=== PATIENT | female | born 1935 | race Caucasian/White ===

== ENCOUNTER 2016-08-25 11:12 | Day surgery (SDC) | payer MEDICARE, BC ==
[~2016-08-25 11:12] MED LIST: Propofol 200 MG/20 ML SDV ONE; fentaNYL 100 MCG/2 ML SDV ONE
[2016-08-25] MEDS ORDERED: Lactated Ringers 1,000 ML IV SCH (12:15)
[2016-08-25] MEDS ORDERED: Propofol 200 MG/20 ML SDV ONE (13:33)
[2016-08-25 14:50] VITALS: BP 132/66
--- NOTE | 2016-08-26 07:28 | OR ---
DATE OF PROCEDURE: 08/25/2016 PREOPERATIVE DIAGNOSES: Anemia. POSTOPERATIVE DIAGNOSES: Hiatal hernia, duodenitis, diverticulosis, small colon polyp 50 cm from the anal verge, and anemia. PROCEDURES: Esophagogastroduodenoscopy with biopsy of duodenum and stomach for CLOtest and for Pathology to look for Helicobacter pylori. Colonoscopy to the cecum with biopsy resection of small colon polyp, 50 cm from the anal verge. ANESTHESIA: IV anesthesia with monitored anesthesia care. INDICATIONS: This 81-year-old white female is referred for upper and lower endoscopy because of anemia. A couple of weeks ago, she had to have a couple of units of blood. Reportedly, her hemoglobin is now over 10. I counseled for upper and lower endoscopy with possible biopsy and/or polypectomy including risks and alternatives and she gave her informed consent to proceed. DESCRIPTION OF PROCEDURE: The patient was placed in the left lateral decubitus position. IV anesthesia was administered by the Anesthesia Service. Time-out was held. The flexible video Olympus upper endoscope was passed through her mouth, down her esophagus, and into her stomach. The scope was easily passed through the pylorus into the duodenum and reached its third portion. The scope was then slowly withdrawn examining the mucosa throughout. The distal duodenum appeared unremarkable. The scope was brought into the duodenal bulb, where there was evidence of duodenitis. The scope was brought up through the pylorus into the antrum. The antrum appeared unremarkable. We then obtained biopsies of the duodenum and stomach for CLOtest and for Pathology to look for Helicobacter pylori. The scope was retroflexed in the stomach. The proximal stomach appeared unremarkable except for a fairly large hiatal hernia. The scope was straightened and brought up to the GE junction. This appeared unremarkable. The scope was brought up through the unremarkable appearing esophagus and was removed. Next a rectal exam was performed, which was unremarkable. The flexible video Olympus colonoscope was introduced through her anus, up her rectum, and out her colon all the way to the cecum. After the cecum was reached, the scope was slowly withdrawn examining the mucosa throughout. We encountered a small polyp 15 cm from the anal verge which was removed with the biopsy forceps. We also encountered multiple left- sided diverticula. There was no bleeding or inflammation associated with any of them at the present time. The scope was retroflexed in the rectum with the distal rectum appearing unremarkable. The scope was straightened and removed. She tolerated the procedure well. Carlos A Burch MD /[id number] MTDFarhad
== END 2016-08-25 15:00 | disposition home or self-care (01) ==
LOC: JP.SDS 11:12
PROVIDERS: ATTEND Surgery
PROC: 0DBE8ZX Excision of Large Intestine, Via Natural or Artificial Opening Endoscopic, Diagnostic (ICD-10-PCS; principal; 2016-08-25)
PROC: 0DB98ZX Excision of Duodenum, Via Natural or Artificial Opening Endoscopic, Diagnostic (ICD-10-PCS; 2016-08-25)
PROC: 0DB68ZX Excision of Stomach, Via Natural or Artificial Opening Endoscopic, Diagnostic (ICD-10-PCS; 2016-08-25)
DX: D50.9 Iron deficiency anemia, unspecified (principal); K57.90 Diverticulosis of intestine, part unspecified, without perforation or abscess without bleeding; D12.6 Benign neoplasm of colon, unspecified; K29.80 Duodenitis without bleeding; K44.9 Diaphragmatic hernia without obstruction or gangrene; Z88.1 Allergy status to other antibiotic agents
CPT/HCPCS: 43239; 45380; 87081; J2704; J3010; J7120; 88305

== ENCOUNTER 2017-11-01 08:27 | Emergency (ER) | payer MEDICARE, BC ==
[2017-11-01] MEDS ORDERED: Ondansetron 4 MG Tab.DIS PO ONE (09:06)
[2017-11-01] MEDS ORDERED: fentaNYL 100 MCG/2 ML SDV IM ONE (09:06)
--- NOTE | 2017-11-01 09:09 | EDM.PDOC ---
ED HPI GENERAL MEDICAL PROBLEM - General Chief Complaint: Gastrointestinal Problem Stated Complaint: ABD PAIN/WEAK Time Seen by Provider: 11/01/17 08:57 Source of Information: Reports: Patient, Family History Limitations: Reports: No Limitations - History of Present Illness INITIAL COMMENTS - FREE TEXT/NARRATIVE: 82-year-old female presents to the emergency department with complaint of abdominal pain, she states she's had pain for about 24 hours it is progressively getting worse rates it 10 out of 10 does come in waves does have a history of cholecystectomy and history of bowel obstruction 1. She denies any fevers or shortness of breath she states she has not passed any gas had a normal bowel movement yesterday Abdominal Pain Score (Numeric/FACES): 6 - Related Data Allergies Allergy/AdvReac Type Severity Reaction Status Date / Time erythromycin lactobionate Allergy Severe Hives Verified 11/01/17 08:42 [From Erythrocin] Home Meds: Home Meds Alendronate [Fosamax] 70 mg PO Q7D@0600 08/01/15 [History] Cholecalciferol (Vitamin D3) [Vitamin D] 400 unit PO DAILY 08/01/15 [History] Cyanocobalamin (Vitamin B12) [Vitamin B12] 100 mcg PO DAILY 08/01/15 [History] Gluc Ceballos 2KCl/Chondr/Vit C/Ulises [Glucosamine-Chondr Complex] 1 each PO DAILY 05/17 [History] Cinnamon Bark [Cinnamon] 1,000 mg PO DAILY 08/11/16 [History] Niacin 500 mg PO QAM 08/11/16 [History] Ferrous Sulfate [Iron] 325 mg PO BID 08/25/16 [History] Past Medical History HEENT History: Reports: Hard of Hearing, Impaired Vision Respiratory History: Reports: Croup Other Respiratory History: legionaries disease 1992 Gastrointestinal History: Reports: Cholelithiasis, Other (See Below) 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: Musculoskeletal History: Reports: Osteoarthritis, RA Endocrine/Metabolic History: Reports: Osteoporosis Oncologic (Cancer) History: Reports: Malignant Melanoma - Infectious Disease History Infectious Disease History: Reports: Chicken Pox, Measles, Mumps Other Infectious Disease History: HAD SOME TYPE OF HEPITITIS YEARS AGO - Past Surgical History HEENT Surgical History: Reports: Cataract Surgery, Tonsillectomy GI Surgical History: Reports: Cholecystectomy, Colon Musculoskeletal Surgical History: Reports: Knee Replacement Oncologic Surgical History: Reports: Other (See Below) Social & Family History - Tobacco Use Smoking Status *Q: Former Smoker Years of Tobacco use: 25 Packs/Tins Daily: 1 Used Tobacco, but Quit: Yes Month/Year Tobacco Last Used: 08/1989 Second Hand Smoke Exposure: Yes - Caffeine Use Caffeine Use: Reports: Coffee, Soda, Tea - Recreational Drug Use Recreational Drug Use: No ED ROS GENERAL - Review of Systems Review Of Systems: See Below Constitutional: Reports: No Symptoms HEENT: Reports: No Symptoms Respiratory: Reports: No Symptoms Cardiovascular: Reports: No Symptoms GI/Abdominal: Reports: Abdominal Pain. Denies: Constipation, Diarrhea, Flatus, Nausea, Vomiting : Reports: No Symptoms Musculoskeletal: Reports: No Symptoms Skin: Reports: No Symptoms Neurological: Reports: No Symptoms ED EXAM, GI/ABD - Physical Exam Exam: See Below Text/Narrative:: General: Female, not in any distress, alert and oriented x3 HEENT: head is atraumatic normocephalic, eyes pupils equal round reactive to light, sclera clear no conjunctivitis appreciated. Ears tympanic membranes clear and sotomayor landmarks and light reflex are present bilaterally canals are clear. Nose no septal deviation, nares are clear, no blood present. Mouth mucosa is moist and pink no erythema or exudate noted in soft palate, tongue is midline uvula is midline, dentition is intact. Neck: Supple no thyromegaly no tracheal deviation. Nodes: Cervical nodes subclavicular nodes nontender no palpable lymphadenopathy noted. Lungs: clear to auscultation bilaterally with symmetrical respirations, no adventitious noise appreciated. CV: Regular rate and rhythm S1 and S2 appreciated no murmurs rubs or gallops noted. Abdomen: Soft, nontender, no palpable masses or organomegaly appreciated, no distention no guarding bowel sounds are present, . Neuro: Cranial nerves II through XII grossly intact Skin: Warm and dry, intact Extremities: No lower extremity edema appreciated, Course - Vital Signs Last Recorded V/S: Last Vital Signs Temp 97.9 F 11/01/17 10:28 Pulse 75 11/01/17 10:28 Resp 16 11/01/17 10:28 BP 131/69 11/01/17 10:28 Pulse Ox 97 11/01/17 10:28 - Orders/Labs/Meds Orders: Active Orders 24 hr Category Date Time Status CULTURE URINE [RM] Urgent Lab 11/01/17 11:40 Ordered UA W/MICROSCOPIC [URIN] Urgent Lab 11/01/17 11:00 Ordered Labs: Laboratory Tests 11/01/17 11/01/17 11/01/17 Range/Units 09:15 09:15 09:15 WBC 10.7 (4.5-11.0) K/uL RBC 5.22 (3.30-5.50) M/uL Hgb 15.1 H (12.0-15.0) g/dL Hct 43.4 (36.0-48.0) % MCV 83 (80-98) fL MCH 29 (27-31) pg MCHC 35 (32-36) % Plt Count 277 (150-400) K/uL Neut % (Auto) 73 H (36-66) % Lymph % (Auto) 17 L (24-44) % [place] % (Auto) 9 H (2-6) % Eos % (Auto) 1 L (2-4) % Baso % (Auto) 0 (0-1) % Sodium 141 (140-148) mmol/L Potassium 4.2 (3.6-5.2) mmol/L Chloride 106 (100-108) mmol/L Carbon Dioxide 22 (21-32) mmol/L Anion Gap 13.1 (5.0-14.0) mmol/L BUN 18 (7-18) mg/dL Creatinine 0.9 (0.6-1.0) mg/dL Est Cr Clr Drug Dosing 38.12 mL/min Estimated GFR (MDRD) 60 (>60) Glucose 144 H (74-106) mg/dL Lactic Acid 1.8 (0.4-2.0) mmol/L Calcium 9.5 (8.5-10.1) mg/dL Total Bilirubin 0.9 (0.2-1.0) mg/dL AST 18 (15-37) U/L ALT 23 (12-78) U/L Alkaline Phosphatase 81 (46-116) U/L Troponin I < 0.017 (0.000-0.056) ng/mL Total Protein 6.4 (6.4-8.2) g/dL Albumin 3.4 (3.4-5.0) g/dL Globulin 3.0 (2.3-3.5) g/dL Albumin/Globulin Ratio 1.1 L (1.2-2.2) Lipase 115 (73-393) U/L Urine Color Urine Appearance Urine pH (4.5-8.0) Ur Specific [place] (1.008-1.030) Urine Protein (NEGATIVE) mg/dL Urine Glucose (UA) (NEGATIVE) mg/dL Urine Ketones (NEGATIVE) mg/dL Urine Occult Blood (NEGATIVE) Urine Nitrite (NEGATIVE) Urine Bilirubin (NEGATIVE) Urine Urobilinogen (NORMAL) mg/dL Ur Leukocyte Esterase (NEGATIVE) Urine RBC (0-5) Urine WBC (0-5) Ur Epithelial Cells Amorphous Sediment Urine Bacteria Urine Mucus 11/01/17 Range/Units 11:00 WBC (4.5-11.0) K/uL RBC (3.30-5.50) M/uL Hgb (12.0-15.0) g/dL Hct (36.0-48.0) % MCV (80-98) fL MCH (27-31) pg MCHC (32-36) % Plt Count (150-400) K/uL Neut % (Auto) (36-66) % Lymph % (Auto) (24-44) % [place] % (Auto) (2-6) % Eos % (Auto) (2-4) % Baso % (Auto) (0-1) % Sodium (140-148) mmol/L Potassium (3.6-5.2) mmol/L Chloride (100-108) mmol/L Carbon Dioxide (21-32) mmol/L Anion Gap (5.0-14.0) mmol/L BUN (7-18) mg/dL Creatinine (0.6-1.0) mg/dL Est Cr Clr Drug Dosing mL/min Estimated GFR (MDRD) (>60) Glucose (74-106) mg/dL Lactic Acid (0.4-2.0) mmol/L Calcium (8.5-10.1) mg/dL Total Bilirubin (0.2-1.0) mg/dL AST (15-37) U/L ALT (12-78) U/L Alkaline Phosphatase (46-116) U/L Troponin I (0.000-0.056) ng/mL Total Protein (6.4-8.2) g/dL Albumin (3.4-5.0) g/dL Globulin (2.3-3.5) g/dL Albumin/Globulin Ratio (1.2-2.2) Lipase (73-393) U/L Urine Color Yellow Urine Appearance Clear Urine pH 5.0 (4.5-8.0) Ur Specific [place] 1.025 (1.008-1.030) Urine Protein Negative (NEGATIVE) mg/dL Urine Glucose (UA) Normal (NEGATIVE) mg/dL Urine Ketones 15 H (NEGATIVE) mg/dL Urine Occult Blood Negative (NEGATIVE) Urine Nitrite Negative (NEGATIVE) Urine Bilirubin Small (NEGATIVE) Urine Urobilinogen 1 (NORMAL) mg/dL Ur Leukocyte Esterase Large (NEGATIVE) Urine RBC Not seen (0-5) Urine WBC 5-10 H (0-5) Ur Epithelial Cells Few Amorphous Sediment Not seen Urine Bacteria Few Urine Mucus Few Meds: Medications Discontinued Medications Generic Name Dose Route Start Last Admin Trade Name Freq PRN Reason Stop Dose Admin Fentanyl 50 mcg 11/01/17 09:06 11/01/17 09:15 Sublimaze IM 11/01/17 09:07 50 mcg ONETIME ONE Administration Ondansetron HCl 4 mg 11/01/17 09:06 11/01/17 09:15 Zofran Odt PO 11/01/17 09:07 4 mg ONETIME ONE Administration Departure - Departure Time of Disposition: 11:46 Disposition: Home, Self-Care 01 Condition: Fair Clinical Impression: Abdominal pain Qualifiers: Abdominal location: generalized Qualified Code(s): R10.84 - Generalized abdominal pain - Discharge Information Referrals: Rigoberto Giron MD [Primary Care Provider] - Forms: ED Department Discharge Additional Instructions: Continue with symptomatic care, Please followup with your primary care provider in 3-5 days if not better, please call return to the emergency department with worsening of symptoms. - My Orders Last 24 Hours: My Active Orders 11/01/17 11:00 UA W/MICROSCOPIC [URIN] Urgent 11/01/17 11:40 CULTURE URINE [RM] Urgent - Assessment/Plan Last 24 Hours: My Active Orders 11/01/17 11:00 UA W/MICROSCOPIC [URIN] Urgent 11/01/17 11:40 CULTURE URINE [RM] Urgent Plan: Assessment Acuity = acute Site and laterality = abdominal pain Etiology = unclear etiology Manifestations = none Location of injury = Home Lab values = CBC, CMP , troponin negative urinalysis reveals 5-10 WBCs consistent pyuria few bacteria cultures pending , x-ray of the abdomen reveals nonspecific bowel gas pattern no sign of obstruction Plan She had complete relief of her abdominal pain with fentanyl , I did discuss with her options including CT scan for further evaluation she preferred to do watchful waiting at this time. She will follow-up with primary care 3-4 days if not better This note was dictated using [email or web address] voice recognition software please call with any questions on syntax or grammar.
[2017-11-01 10:29] VITALS: BP 131/69
--- NOTE | 2017-11-01 10:49 | CR ---
Abdomen 1V Flat INDICATION: pain COMPARISON: Nothing recent. CT 04/01/2014. FINDINGS: Single supine view of the abdomen shows nonspecific bowel gas pattern. No definite signs of obstruction. Surgical clips right upper quadrant. There may be postsurgical change in the left abdomen. No abnormal calculi. Degenerative change in right convex curvature lumbar spine.
== END 2017-11-01 12:34 | disposition home or self-care (01) ==
LOC: JP.ED 08:27
DX: R10.84 Generalized abdominal pain (principal); Z87.891 Personal history of nicotine dependence; Z79.899 Other long term (current) drug therapy; Z88.1 Allergy status to other antibiotic agents
CPT/HCPCS: 36415; 74018; 80053; 81001; 83605; 83690; 84484; 85025; 87086; 87088; 87186; 96372; 99284; A9270; J3010

== ENCOUNTER 2017-11-02 03:28 | Inpatient (IN) | payer MEDICARE, BC ==
[2017-11-02] MEDS ORDERED: Ondansetron 4 MG/2 ML SDV IVPUSH ONE (03:59)
[2017-11-02] MEDS ORDERED: fentaNYL 100 MCG/2 ML SDV IVPUSH ONE (03:59)
[2017-11-02] MEDS ORDERED: Sodium Chloride 0.9% 10 ML Syringe FLUSH PRN (03:59)
[2017-11-02] MEDS ORDERED: Sodium Chloride 0.9% 1,000 ML IV SCH (04:00)
--- NOTE | 2017-11-02 04:06 | EDM.PDOC ---
ED HPI GENERAL MEDICAL PROBLEM - General Chief Complaint: Abdominal Pain Stated Complaint: MED[facility] Time Seen by Provider: 11/02/17 03:48 Source of Information: Reports: Patient, Old Records, RN Notes Reviewed History Limitations: Reports: No Limitations - History of Present Illness INITIAL COMMENTS - FREE TEXT/NARRATIVE: EMS arrival Chief complaint Abdominal pain History of present illness 82-year-old female, , lives on her own, started developing upper abdominal pain approximately 40 hours ago He reminds her bit of gallbladder pain, she did have a cholecystectomy. She was seen in emergency about 20 hours ago for this, improved with fentanyl and ondansetron IV, she declined CT scan at that time Discharged home improved but her symptoms started relapsing within a few hours. Nausea but no vomiting no retching No urinary troubles feels like a pressure across the upper abdomen. No comfortable position, nothing relieves the pain No fever or chills Abdominal Pain Score (Numeric/FACES): 8 - Related Data Allergies Allergy/AdvReac Type Severity Reaction Status Date / Time erythromycin lactobionate Allergy Severe Hives Verified 11/02/17 03:32 [From Erythrocin] Home Meds: Home Meds Alendronate [Fosamax] 70 mg PO Q7D@0600 08/01/15 [History] Cholecalciferol (Vitamin D3) [Vitamin D] 400 unit PO DAILY 08/01/15 [History] Cyanocobalamin (Vitamin B12) [Vitamin B12] 100 mcg PO DAILY 08/01/15 [History] Gluc Ceballos 2KCl/Chondr/Vit C/Ulises [Glucosamine-Chondr Complex] 1 each PO DAILY 05/17 [History] Cinnamon Bark [Cinnamon] 1,000 mg PO DAILY 08/11/16 [History] Niacin 500 mg PO QAM 08/11/16 [History] Ferrous Sulfate [Iron] 325 mg PO BID 08/25/16 [History] Past Medical History HEENT History: Reports: Hard of Hearing, Impaired Vision Respiratory History: Reports: Croup Other Respiratory History: legionaries disease 1992 Gastrointestinal History: Reports: Cholelithiasis, Other (See Below) 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: Musculoskeletal History: Reports: Osteoarthritis, RA Endocrine/Metabolic History: Reports: Osteoporosis Oncologic (Cancer) History: Reports: Malignant Melanoma - Infectious Disease History Infectious Disease History: Reports: Chicken Pox, Measles, Mumps Other Infectious Disease History: HAD SOME TYPE OF HEPITITIS YEARS AGO - Past Surgical History HEENT Surgical History: Reports: Cataract Surgery, Tonsillectomy GI Surgical History: Reports: Cholecystectomy, Colon Musculoskeletal Surgical History: Reports: Knee Replacement Social & Family History - Tobacco Use Smoking Status *Q: Never Smoker - Caffeine Use Caffeine Use: Reports: None - Recreational Drug Use Recreational Drug Use: No ED ROS GENERAL - Review of Systems Review Of Systems: See Below Constitutional: Reports: No Symptoms HEENT: Reports: No Symptoms Respiratory: Reports: No Symptoms Cardiovascular: Reports: No Symptoms GI/Abdominal: Reports: Abdominal Pain, Decreased Appetite, Nausea. Denies: Constipation, Diarrhea, Vomiting : Reports: No Symptoms Musculoskeletal: Reports: No Symptoms Skin: Reports: No Symptoms Neurological: Reports: No Symptoms Immunologic: Reports: No Symptoms (Microscopic but) ED EXAM, GI/ABD - Physical Exam Exam: See Below Exam Limited By: No Limitations General Appearance: Alert, Anxious, Mild Distress, Other (Mild elevation systolic blood pressure otherwise vital signs normal, no difficulty speaking or breathing) Eyes: Bilateral: Normal Appearance Ears: Normal External Exam Nose: Normal Inspection Throat/Mouth: Normal Inspection, Normal Oropharynx Head: Atraumatic, Normocephalic Neck: Normal Inspection, Non-Tender. No: Lymphadenopathy (R), Lymphadenopathy ( L) Respiratory/Chest: No Respiratory Distress, No Accessory Muscle Use Cardiovascular: Normal Peripheral Pulses, Regular Rate, Rhythm GI/Abdominal Exam: Soft, Distended, Tender (Mild across upper abdomen), Abnormal Bowel Sounds (Slightly increased in quantity and a very slight increase in pitch). No: Rigid, Rebound, Hernia, Mass, Hepatomegaly Neurological: Alert, No Motor/Sensory Deficits Course - Vital Signs Last Recorded V/S: Last Vital Signs Temp 36.9 C 11/02/17 03:39 Pulse 75 11/02/17 03:39 Resp 20 11/02/17 03:39 BP 142/76 H 11/02/17 03:39 Pulse Ox 94 L 11/02/17 03:39 - Orders/Labs/Meds Orders: Active Orders 24 hr Category Date Time Status Peripheral IV Care [RC] . DIRECTED Care 11/02/17 04:00 Active Abdomen Pelvis w Cont [CT] Stat Exams 11/02/17 03:59 Taken Sodium Chloride 0.9% [Normal Saline] 1,000 ml Med 11/02/17 04:00 Active IV ASDIRECTED Sodium Chloride 0.9% [Saline Flush] Med 11/02/17 03:59 Active 10 ml FLUSH ASDIRECTED PRN Peripheral IV Insertion Adult [OM.PC] Routine Oth 11/02/17 03:59 Ordered Medication Orders Sodium Chloride (Normal Saline) 1,000 mls @ 250 mls/hr IV ASDIRECTED MIMI Last Admin: 11/02/17 04:11 Dose: 250 mls/hr Sodium Chloride (Saline Flush) 10 ml FLUSH ASDIRECTED PRN PRN Reason: Keep Vein Open Last Admin: 11/02/17 04:12 Dose: 10 ml Labs: Laboratory Tests 11/02/17 Range/Units 03:59 WBC 11.2 H (4.5-11.0) K/uL RBC 5.52 H (3.30-5.50) M/uL Hgb 15.5 H (12.0-15.0) g/dL Hct 45.7 (36.0-48.0) % MCV 83 (80-98) fL MCH 28 (27-31) pg MCHC 34 (32-36) % Plt Count 322 (150-400) K/uL Meds: Medications Generic Name Dose Route Start Last Admin Trade Name Freq PRN Reason Stop Dose Admin Sodium Chloride 1,000 mls @ 250 mls/hr 11/02/17 04:00 11/02/17 04:11 Normal Saline IV 250 mls/hr ASDIRECTED MIMI Administration Sodium Chloride 10 ml 11/02/17 03:59 11/02/17 04:12 Saline Flush FLUSH 10 ml ASDIRECTED PRN Administration Keep Vein Open Discontinued Medications Generic Name Dose Route Start Last Admin Trade Name Freq PRN Reason Stop Dose Admin Fentanyl 50 mcg 11/02/17 03:59 11/02/17 04:11 Sublimaze IVPUSH 11/02/17 04:00 50 mcg ONETIME ONE Administration Sodium Chloride 70 mls @ 3 mls/sec 11/02/17 04:20 11/02/17 04:36 Normal Saline IV 11/02/17 04:21 3 mls/sec ASDIRECTED STA Administration Iopamidol 100 ml 11/02/17 04:20 11/02/17 04:36 Isovue-300 (61%) IV 11/02/17 04:21 100 ml . DIRECTED STA Administration Ondansetron HCl 4 mg 11/02/17 03:59 11/02/17 04:12 Zofran IVPUSH 11/02/17 04:00 4 mg ONETIME ONE Administration - Re-Assessments/Exams Free Text/Narrative Re-Assessment/Exam: 11/02/17 04:05 82-year-old female with approximately 40 hours of upper abdominal pain. Differential diagnosis includes colitis gastroneur choledocholithiasis gastroneuritis among others Intrave established, fentanyl 50 g IV, ondansetron 4 mg IV 11/02/17 04:09 Because of the recurrent and persistent pain, CT scan abdomen pelvis 11/02/17 05:[address] scan shows small bowel obstruction Patient has refused nasogastric tube Departure - Departure Time of Disposition: 05:12 Disposition: Admitted As Inpatient 66 Condition: Good Clinical Impression: Small bowel obstruction - Discharge Information Referrals: PCP,None [Primary Care Provider] - Forms: ED Department Discharge - My Orders Last 24 Hours: My Active Orders 11/02/17 03:59 Abdomen Pelvis w Cont [CT] Stat Sodium Chloride 0.9% [Saline Flush] 10 ml FLUSH ASDIRECTED PRN Peripheral IV Insertion Adult [OM.PC] Routine 11/02/17 04:00 Peripheral IV Care [RC] . DIRECTED Sodium Chloride 0.9% [Normal Saline] 1,000 ml IV ASDIRECTED - Assessment/Plan Last 24 Hours: My Active Orders 11/02/17 03:59 Abdomen Pelvis w Cont [CT] Stat Sodium Chloride 0.9% [Saline Flush] 10 ml FLUSH ASDIRECTED PRN Peripheral IV Insertion Adult [OM.PC] Routine 11/02/17 04:00 Peripheral IV Care [RC] . DIRECTED Sodium Chloride 0.9% [Normal Saline] 1,000 ml IV ASDIRECTED
[2017-11-02] MEDS ORDERED: Iopamidol 612 MG/ML 100 ML Bottle IV STA (04:20)
--- NOTE | 2017-11-02 06:06 | PCM.HP ---
H&P History of Present Illness - General Date of Service: 11/02/17 Admit Problem/Dx: Admission Diagnosis/Problem Admission Diagnosis/Problem Small bowel obstruction Source of Information: Patient History Limitations: Reports: No Limitations - History of Present Illness Initial Comments - Free Text/Narative: EMS arrival Chief complaint Abdominal pain History of present illness 82-year-old female, , lives on her own, started developing upper abdominal pain approximately 40 hours ago He reminds her bit of gallbladder pain, she did have a cholecystectomy. She was seen in emergency about 20 hours ago for this, improved with fentanyl and ondansetron IV, she declined CT scan at that time Discharged home improved but her symptoms started relapsing within a few hours. Nausea but no vomiting no retching No urinary troubles feels like a pressure across the upper abdomen. No comfortable position, nothing relieves the pain No fever or chills Abdominal Pain Score (Numeric/FACES): 8 11/02/17 04:05 82-year-old female with approximately 40 hours of upper abdominal pain. Differential diagnosis includes colitis gastroneur choledocholithiasis gastroneuritis among others Intrave established, fentanyl 50 g IV, ondansetron 4 mg IV 11/02/17 04:09 Because of the recurrent and persistent pain, CT scan abdomen pelvis 11/02/17 05:[address] scan shows small bowel obstruction Patient has refused nasogastric tube Onset of Symptoms: Reports: Today Symptom Onset Date: 10/30/17 Duration of Symptoms: Reports: Getting Worse Location: Reports: Abdomen Quality: Reports: Same as Previous Episode Severity: Moderate Improves with: Reports: None Worsens with: Reports: Eating Context: Reports: Other Associated Symptoms: Reports: Loss of Appetite, Nausea/Vomiting, Weakness Abdominal Pain Score (Numeric/FACES): 8 - Related Data Allergies/Adverse Reactions: Allergies Allergy/AdvReac Type Severity Reaction Status Date / Time erythromycin lactobionate Allergy Severe Hives Verified 11/02/17 03:32 [From Erythrocin] Home Medications: Home Meds Alendronate [Fosamax] 70 mg PO Q7D@0600 08/01/15 [History] Cholecalciferol (Vitamin D3) [Vitamin D] 400 unit PO DAILY 08/01/15 [History] Cyanocobalamin (Vitamin B12) [Vitamin B12] 100 mcg PO DAILY 08/01/15 [History] Gluc Ceballos 2KCl/Chondr/Vit C/Ulises [Glucosamine-Chondr Complex] 1 each PO DAILY 05/17 [History] Cinnamon Bark [Cinnamon] 1,000 mg PO DAILY 08/11/16 [History] Niacin 500 mg PO QAM 08/11/16 [History] Ferrous Sulfate [Iron] 325 mg PO BID 08/25/16 [History] Past Medical History HEENT History: Reports: Hard of Hearing, Impaired Vision Respiratory History: Reports: Croup Other Respiratory History: legionaries disease 1992 Gastrointestinal History: Reports: Cholelithiasis, Other (See Below) 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 Gastrointestinal History: 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: Musculoskeletal History: Reports: Osteoarthritis, RA Endocrine/Metabolic History: Reports: Osteoporosis Oncologic (Cancer) History: Reports: Malignant Melanoma - Infectious Disease History Infectious Disease History: Reports: Chicken Pox, Measles, Mumps Other Infectious Disease History: HAD SOME TYPE OF HEPITITIS YEARS AGO - Past Surgical History HEENT Surgical History: Reports: Cataract Surgery, Tonsillectomy GI Surgical History: Reports: Cholecystectomy, Colon Musculoskeletal Surgical History: Reports: Knee Replacement Social & Family History - Tobacco Use Smoking Status *Q: Never Smoker - Caffeine Use Caffeine Use: Reports: None - Recreational Drug Use Recreational Drug Use: No - Living Situation & Occupation Living situation: Reports: Occupation: Retired ( for 4 years, lives [address] in [place], [place]., selling in home, plans to live in [address] in [place], [place]. has 3 adult children/daughter) H&P Review of Systems - Review of Systems: Review Of Systems: See Below General: Reports: Weakness, Decreased Appetite HEENT: Reports: Glasses Pulmonary: Reports: No Symptoms Cardiovascular: Reports: No Symptoms Gastrointestinal: Reports: Abdominal Pain, Distension, Nausea Genitourinary: Reports: No Symptoms Musculoskeletal: Reports: No Symptoms Skin: Reports: No Symptoms Psychiatric: Reports: No Symptoms Neurological: Reports: Weakness Hematologic/Lymphatic: Reports: No Symptoms Immunologic: Reports: No Symptoms Exam - Exam Exam: See Below - Vital Signs Vital Signs: Last Vital Signs Temp 36.9 C 11/02/17 03:39 Pulse 75 11/02/17 03:39 Resp 20 11/02/17 03:39 BP 142/76 H 11/02/17 03:39 Pulse Ox 94 L 11/02/17 03:39 Weight: 62.596 kg - Exam Quality Assessment: DVT Prophylaxis General: Alert, Oriented, Cooperative, Mild Distress HEENT: PERRLA, Conjunctiva Clear, EACs Clear, EOMI, Hearing Intact, Mucosa Moist & [place], Nares Patent, Normal Nasal Septum, Posterior Pharynx Clear, Pupils Equal, Pupils Reactive, TMs Clear Neck: Supple, Trachea Midline Lungs: Clear to Auscultation, Normal Respiratory Effort Cardiovascular: Regular Rate, Regular Rhythm, Normal S1, Normal S2 GI/Abdominal Exam: Distended, Tender, Abnormal Bowel Sounds (Female) Exam: Deferred Rectal (Female) Exam: Deferred Back Exam: Normal Inspection, Full Range of Motion Extremities: Normal Inspection, Normal Range of Motion, Non-Tender, No Pedal Edema, Normal Capillary Refill Skin: Warm, Dry, Intact Neurological: Strength Equal Bilateral, Normal Speech, Normal Tone Neuro Extensive - Mental Status: Alert, Oriented x3, Normal Mood/Affect, Normal Cognition Neuro Extensive - Motor, Sensory, Reflexes: Motor/Sensory Deficits Psychiatric: Alert, Normal Affect, Normal Mood - Patient Data Lab Results Last 24 hrs: Laboratory Results - last 24 hr 11/02/17 11/02/17 Range/Units 03:59 05:44 WBC 11.2 H (4.5-11.0) K/uL RBC 5.52 H (3.30-5.50) M/uL Hgb 15.5 H (12.0-15.0) g/dL Hct 45.7 (36.0-48.0) % MCV 83 (80-98) fL MCH 28 (27-31) pg MCHC 34 (32-36) % Plt Count 322 (150-400) K/uL Sodium 140 (140-148) mmol/L Potassium 4.1 (3.6-5.2) mmol/L Chloride 103 (100-108) mmol/L Carbon Dioxide 25 (21-32) mmol/L Anion Gap 12.3 (5.0-14.0) mmol/L BUN 23 H (7-18) mg/dL Creatinine 1.0 (0.6-1.0) mg/dL Est Cr Clr Drug Dosing 34.30 mL/min Estimated GFR (MDRD) 53 L (>60) Glucose 148 H (74-106) mg/dL Calcium 9.6 (8.5-10.1) mg/dL Result Diagrams: 11/02/17 03:59 11/02/17 05:44 - Problem List (1) Small bowel obstruction SNOMED Code(s): 626919799 ICD Code: K56.609 - UNSP INTESTNL OBST, UNSP TO PARTIAL VERSUS COMPLETE OBST Status: Acute Current Visit: Yes Problem List Initiated/Reviewed/Updated: Yes Orders Last 24hrs: Active Orders 24 hr Category Date Time Status Patient Status Manage Transfer [TRANSFER] Routine ADT 11/02/17 05:51 Ordered Peripheral IV Care [RC] . DIRECTED Care 11/02/17 04:00 Active Abdomen Pelvis w Cont [CT] Stat Exams 11/02/17 03:59 Taken Sodium Chloride 0.9% [Normal Saline] 1,000 ml Med 11/02/17 04:00 Active IV ASDIRECTED Sodium Chloride 0.9% [Saline Flush] Med 11/02/17 03:59 Active 10 ml FLUSH ASDIRECTED PRN Peripheral IV Insertion Adult [OM.PC] Routine Oth 11/02/17 03:59 Ordered Resuscitation Status Routine Resus Stat 11/02/17 05:52 Ordered Medication Orders Sodium Chloride (Normal Saline) 1,000 mls @ 250 mls/hr IV ASDIRECTED MIMI Last Admin: 11/02/17 04:11 Dose: 250 mls/hr Sodium Chloride (Saline Flush) 10 ml FLUSH ASDIRECTED PRN PRN Reason: Keep Vein Open Last Admin: 11/02/17 04:12 Dose: 10 ml Assessment/Plan Comment:: ASSESSEMENT: small bowel obstruction -This is 82 year old present to ER with complaints of abdominal starting at Tuesday, 4 days, unable tolerate the pain, call ambulance to transport to the hospital/ER for further care and treatment. In ER, abdomen pelvis impression; the small bowel is severely distended measuring 5 cm in diameter with transition point in the left lowere-quadrant. findings are consistent with distal small bowel mechanical obstruction. Small Bowel Obstruction -Admit to [address] [place] [address] for further monitoring -IV Fluids for rehydration LR at 125 mL per hour -NPO, bowel rest, declines NG tubes placement -IV TRANSPORTATION MODELER pump -zofran -Advise to notify nurses of any chest pain or other symptoms -Surgery Consult; Dr. Avinash Mcclure Maintenance issues -Orders home meds: on hold, NPO -Nutrition: NPO -Casanova catheter not indicated at this time -DVT: Lovenox 30 units subcut -PPI: IV Protonix 40mg daily CODE STATUS: FULL CODE Admission status: Admit to [address] [place] [address] Admission justification. This patient will be admitted for inpatient services and is medically appropriate meeting medical necessity for inpatient admission as outlined in my documentation. I reasonably expect the patient will require inpatient services that span. Time over 2 midnights. I reasonably expect this patient to be discharged or transferred within 96 hours after admission to the [facility]. Disposition; home Primary care provider: Dr. Giron Hospitalist: Dr. Self
[2017-11-02] MEDS ORDERED: Ondansetron 4 MG/2 ML SDV IV PRN (06:29)
[2017-11-02] MEDS ORDERED: Docusate Sodium 100 MG Cap PO PRN (06:29)
[2017-11-02] MEDS ORDERED: Albuterol 0.083% 2.5 MG/3 ML Neb Soln NEB PRN (06:29)
[2017-11-02] MEDS ORDERED: fentaNYL/Normal Saline 600 MCG/30 ML PCA Vial IV PRN (06:29)
[2017-11-02] MEDS ORDERED: Ondansetron 4 MG Tab.DIS PO PRN (06:29)
[2017-11-02] MEDS ORDERED: LORazepam 2 MG/ML SDV IV PRN (06:29)
[2017-11-02] MEDS ORDERED: Pantoprazole 40 MG Vial IV SCH (06:29)
[2017-11-02] MEDS ORDERED: Lactated Ringers 1,000 ML IV SCH (06:29)
[2017-11-02] MEDS ORDERED: Naloxone 0.4 MG/ML SDV IVPUSH PRN (06:29)
[2017-11-02] MEDS ORDERED: Bisacodyl 5 MG Tab PO PRN (06:29)
[2017-11-02] MEDS ORDERED: Lidocaine 2% Viscous Solution 15 ML Cup PO ONE (07:35)
[2017-11-02] MEDS: Enoxaparin 40 MG/0.4 ML Syringe SUBCUT SCH (09:08)
[2017-11-02] MEDS ORDERED: Benzocaine/Cetylpyridinium/Menthol Lozenge MUCMEM PRN (09:33)
[2017-11-02] MEDS ORDERED: Lactated Ringers 500 ML IV ONE (09:45)
[2017-11-02] MEDS: Dextrose 5%-Lactated Ringers 1,000 ML IV SCH ×2 (13:11→21:42)
[2017-11-02] MEDS ORDERED: Phenol/Sodium Phenolate Spray 180 ML Bottle PO PRN (17:20)
[2017-11-02] MEDS: Pantoprazole 40 MG Vial IV SCH (17:23)
[2017-11-03] MEDS: Pantoprazole 40 MG Vial IV SCH (05:05)
[2017-11-03] MEDS: Dextrose 5%-Lactated Ringers 1,000 ML IV SCH (08:21)
[2017-11-03] MEDS: Enoxaparin 40 MG/0.4 ML Syringe SUBCUT SCH (08:21)
--- NOTE | 2017-11-03 09:28 | CR ---
Abdomen 2V AP Flat Upright INDICATION: F/U SBO COMPARISON: CT previous day 11/02/2017 FINDINGS: 2 views. NG tube in the proximal stomach. Scattered air-fluid levels in the abdomen. No obvious change. Surgical clips right upper quadrant.
--- NOTE | 2017-11-03 10:02 | PN ---
DATE OF SERVICE: 11/02/2017 HISTORY: The patient was admitted overnight with a small bowel obstruction. This was associated with a very large gastric volume along with quite a bit of distention of small bowel. Presently, the patient is afebrile with stable vital signs. Abdomen is distended, but not tender and a sense of any peritonitis discomfort related to the distention. The labs are relatively unremarkable. Hemoglobin is 15, I suspect it may indicate some dehydration, and plan will be for placement of NG tube at this point. We will try to initially treat this small bowel stricture nonoperatively. We gave her some additional hydration and check labs and abdominal x-ray tomorrow morning. Should the bowel obstruction not resolve over the next day or two, we will need to proceed then with a laparotomy and for a correction. Avinash Mcclure MD Job #: [id number]
--- NOTE | 2017-11-03 10:11 | PN ---
DATE OF SERVICE: 11/03/2017 SUBJECTIVE: Breanna has had 3 large loose bowel movements. She is feeling better. 200 mL were removed from her NG. Labs this morning reveals a hemoglobin of 12.9, glucose 118, phosphorus 2.1, and potassium is 3.4. REVIEW OF SYSTEMS: HEENT: Negative. NECK: Negative. CHEST: No chest pain or shortness of breath, fast or irregular heartbeats. LUNGS: No cough. ABDOMEN: As above. : Negative. EXTREMITIES: Negative. NEUROLOGIC: Negative. PSYCHIATRIC: Negative. SKIN: Negative. Remainder of review of systems negative for any pertinent positives and negatives. OBJECTIVE: GENERAL: Breanna Carroll is a pleasant 82-year-old female. VITAL SIGNS: TPR 97.9, 58, 18, and blood pressure 160/71. HEENT: Negative. NECK: Supple. HEART: Regular rate and rhythm. LUNGS: Clear. ABDOMEN: Soft. Slight distention. No tenderness. EXTREMITIES: Without peripheral edema. PSYCHIATRIC: Mood and affect appropriate. ASSESSMENT: Partial small bowel obstruction. PLAN: 1. Discontinue NG. 2. Continue clear liquid diet. Call at noon to Avinash Mcclure MD, in regard to abdominal pain. May be able to start a full liquid diet at noon. 3. Check abdominal flat and upright x-rays series at 0400 hours. 4. Check CBC, CMP, and phos in a.m. 5. Potassium phosphate 60 millimoles IV today. 6. Good pulmonary toilet. 7. We will evaluate p.r.n. or in a.m. Mercy Mccullough PA-C /[id number]
[2017-11-03] MEDS ORDERED: Acetaminophen 325 MG Tab PO PRN (10:28)
[2017-11-03] MEDS ORDERED: traMADol 50 MG Tab PO PRN (10:28)
--- NOTE | 2017-11-03 10:31 | PCM.PN ---
- General Info Date of Service: 11/03/17 Functional Status: Reports: Pain Controlled, Tolerating Diet - Review of Systems General: Denies: Fever Gastrointestinal: Reports: Flatus. Denies: Abdominal Pain Systems Review Comment:: There were no acute events overnight. She has been having bowel movements and her NG tube was removed. 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 Tolerating clear liquids. No fevers. Urine culture from the emergency room visit the day prior to admission did grow out Escherichia coli but the patient does not currently have fever, urinary symptoms or elevated white count. - Patient Data Vitals - Most Recent: Last Vital Signs Temp 36.6 C 11/03/17 07:00 Pulse 58 L 11/03/17 07:00 Resp 18 11/03/17 07:00 BP 160/71 H 11/03/17 07:00 Pulse Ox 97 11/03/17 07:41 Weight - Most Recent: 62.596 kg I&O - Last 24 Hours: Intake & Output 11/02/17 11/03/17 11/03/17 22:59 06:59 14:59 Intake Total 524 1117 240 Output Total 100 100 Balance 424 1017 240 Lab Results Last 24 Hours: Laboratory Results - last 24 hr 11/03/17 11/03/17 Range/Units 04:48 04:48 WBC 5.9 (4.5-11.0) K/uL RBC 4.59 (3.30-5.50) M/uL Hgb 12.9 D (12.0-15.0) g/dL Hct 39.5 (36.0-48.0) % MCV 86 (80-98) fL MCH 28 (27-31) pg MCHC 33 (32-36) % Plt Count 226 (150-400) K/uL Sodium 146 (140-148) mmol/L Potassium 3.4 L (3.6-5.2) mmol/L Chloride 112 H (100-108) mmol/L Carbon Dioxide 26 (21-32) mmol/L Anion Gap 11.4 (5.0-14.0) mmol/L BUN 11 D (7-18) mg/dL Creatinine 0.9 (0.6-1.0) mg/dL Est Cr Clr Drug Dosing 38.12 mL/min Estimated GFR (MDRD) 60 (>60) Glucose 118 H (74-106) mg/dL Calcium 8.2 L (8.5-10.1) mg/dL Phosphorus 2.1 L (2.5-4.9) mg/dL Magnesium 1.9 (1.8-2.4) mg/dL Total Bilirubin 0.4 D (0.2-1.0) mg/dL AST 16 (15-37) U/L ALT 18 (12-78) U/L Alkaline Phosphatase 60 (46-116) U/L NT-Pro-B Natriuret Pep 418 (5-450) pg/mL Total Protein 5.3 L (6.4-8.2) g/dL Albumin 2.6 L (3.4-5.0) g/dL Globulin 2.7 (2.3-3.5) g/dL Albumin/Globulin Ratio 1.0 L (1.2-2.2) Med Orders - Current: Current Medications Albuterol (Proventil Neb Soln) 2.5 mg NEB Q4H PRN PRN Reason: Shortness Of Breath/wheezing Benzocaine/Menthol (Cepacol Sore Throat) 1 lozenge MUCMEM ASDIRECTED PRN PRN Reason: SORE THROAT Last Admin: 11/02/17 10:46 Dose: 1 migel Bisacodyl (Dulcolax) 5 mg PO DAILY PRN PRN Reason: Constipation Docusate Sodium (Colace) 100 mg PO BID PRN PRN Reason: Constipation Enoxaparin Sodium (Lovenox) 40 mg SUBCUT DAILY [facility] Last Admin: 11/03/17 08:21 Dose: 40 mg Potassium Phosphate 20 mmole/ (Sodium Chloride) 256.6667 mls @ 86 mls/hr IV Q3H [facility] Stop: 11/03/17 18:59 Lorazepam (Ativan) 1 mg IV Q6H PRN PRN Reason: Nausea/Vomiting Naloxone HCl (Narcan) 0.4 mg IVPUSH Q2M PRN PRN Reason: Respiratory Distress Ondansetron HCl (Zofran Odt) 4 mg PO Q6H PRN PRN Reason: Nausea able to take PO Ondansetron HCl (Zofran) 4 mg IV Q4H PRN PRN Reason: Nausea/Vomiting Phenol (Phenaseptic Liquid) 0 ml PO Q1H PRN PRN Reason: throat pain Last Admin: 11/02/17 17:42 Dose: 1 spray Discontinued Medications Fentanyl (Sublimaze) 50 mcg IVPUSH ONETIME ONE Stop: 11/02/17 04:00 Last Admin: 11/02/17 04:11 Dose: 50 mcg Fentanyl Citrate (Fentanyl In Ns 20 Mcg/Ml 30 Ml [facility] Director) 0 mcg IV ASDIRECTED PRN; Protocol PRN Reason: Pain Last Admin: 11/02/17 07:01 Dose: 600 mcg Sodium Chloride (Normal Saline) 1,000 mls @ 250 mls/hr IV ASDIRECTED [facility] Last Admin: 11/02/17 04:11 Dose: 250 mls/hr Sodium Chloride (Normal Saline) 70 mls @ 3 mls/sec IV ASDIRECTED STA Stop: 11/02/17 04:21 Last Admin: 11/02/17 04:36 Dose: 3 mls/sec Lactated Ringer's (Ringers, Lactated) 1,000 mls @ 125 mls/hr IV ASDIRECTED [facility] Last Admin: 11/02/17 09:07 Dose: 125 mls/hr Lactated Ringer's (Ringers, Lactated) 500 mls @ 250 mls/hr IV ONETIME ONE Stop: 11/02/17 11:44 Last Admin: 11/02/17 10:18 Dose: Not Given Dextrose/Lactated Ringer's (Dextrose 5%-Lactated Ringers) 1,000 mls @ 100 mls/ hr IV ASDIRECTED [facility] Last Admin: 11/03/17 08:21 Dose: 100 mls/hr Iopamidol (Isovue-300 (61%)) 100 ml IV . DIRECTED STA Stop: 11/02/17 04:21 Last Admin: 11/02/17 04:36 Dose: 100 ml Lidocaine HCl (Xylocaine 2% Viscous) 15 ml PO ONETIME ONE Stop: 11/02/17 07:36 Last Admin: 11/02/17 09:07 Dose: 15 ml Ondansetron HCl (Zofran) 4 mg IVPUSH ONETIME ONE Stop: 11/02/17 04:00 Last Admin: 11/02/17 04:12 Dose: 4 mg Pantoprazole Sodium (Protonix Iv) 40 mg IV Q12H [facility] Last Admin: 11/02/17 07:01 Dose: 40 mg Pantoprazole Sodium (Protonix Iv) 40 mg IV Q12H MIMI Last Admin: 11/03/17 05:05 Dose: 40 mg Sodium Chloride (Saline Flush) 10 ml FLUSH ASDIRECTED PRN PRN Reason: Keep Vein Open Last Admin: 11/02/17 04:12 Dose: 10 ml - Exam Quality Assessment: No: Supplemental Oxygen General: Alert, Oriented, Cooperative, No Acute Distress Neck: Supple Lungs: Normal Respiratory Effort GI/Abdominal Exam: Soft, Distended (mild) Extremities: No Pedal Edema Psy/Mental Status: Alert, Normal Affect - Problem List Review Problem List Initiated/Reviewed/Updated: Yes - My Orders Last 24 Hours: My Active Orders 11/03/17 10:28 Acetaminophen [Tylenol] 650 mg PO Q4H PRN traMADol [Ultram] 50 mg PO Q6H PRN 11/03/17 10:29 Communication Order [RC] ROUTINE 11/03/17 11:00 Dextrose 5%-Lactated Ringers 1,000 ml IV ASDIRECTED 11/04/17 07:30 Pantoprazole [ProTONIX] 40 mg PO ACBREAKFAST - Plan Plan:: ASSESSEMENT: Small Bowel Obstruction - mechanical obstruction seems to be resolving. Patient is passing stool and has essentially no pain. -Gentle IV fluids -Clear liquids -Acetaminophen and/or tramadol for pain -Flat and upright x-ray in the morning Positive urine culture - urine culture from the day before admission did grow out Escherichia coli which was pansensitive. The patient does not currently have fevers, elevated white count or urinary symptoms Nikki will not initiate treatment at this time. Maintenance issues -Nutrition: Clear liquids -Casanova catheter not indicated at this time -DVT: Lovenox 30 units subcut -GI: PPI Disposition; I would anticipate discharge to home in the next 1 or 2 days if she continues to improve at her current rate. David Self M.D.
[2017-11-03] MEDS: Potassium Phosphates 20 MMOLE in Sodium Chloride 0.9% 250 ML IV SCH ×3 (10:58→18:39)
[2017-11-03] MEDS ORDERED: Dextrose 5%-Lactated Ringers 1,000 ML IV SCH (11:00)
[2017-11-04] MEDS ORDERED: Pantoprazole 40 MG Tab.CR PO SCH (07:30)
[2017-11-04 08:07] VITALS: BP 150/75
[2017-11-04] MEDS ORDERED: Potassium Chloride 20 MEQ, Lidocaine 1% 2 ML in Sodium Chloride 0.9% 100 ML IV SCH (09:00)
[2017-11-04] MEDS ORDERED: Magnesium Sulfate/Water 2 GM in Premix Bag 1 BAG IV ONE (09:00)
--- NOTE | 2017-11-04 09:06 | CR ---
Abdomen 2V AP Flat Upright INDICATION: Partial Small Bowel Obstruction COMPARISON: 11/03/2017 FINDINGS: 2 views. NG tube removed. Continued improvement in small bowel gas pattern. No abnormal di latation or signs of obstruction on today's exam. No free air on the upright view or abnormal air-flu id levels.
--- NOTE | 2017-11-04 16:11 | DISCH ---
ADMISSION DIAGNOSES: 1. Partial small bowel obstruction. 2. Abdominal pain. 3. Rheumatoid arthritis. DISCHARGE DIAGNOSES: Resolution of small bowel obstruction, medically managed. HISTORY: Breanna Carroll is an 82-year-old female who went to the emergency department at [facility], [place], [place], on 11/02/2017, via ambulance. She was in the emergency room the day prior to this and went home, but the pain came back and was worse than it was the first time. HOSPITAL COURSE: She was admitted to the hospital. A CT scan did reveal small bowel was severely distended, measuring 5 cm in the diameter, transition point left lower quadrant, and a moderate fluid-filled gastric hernia was noted, consistent with a distal small bowel mechanical obstruction. She was seen by Avinash Mcclure MD, in surgical consult. NG was placed and was treated with clear liquids. The NG was removed on the following day. Lab values were checked. Phosphorus and potassiums were low, and these were replaced on 11/03/2017, and her abdominal pain improved greatly. She tolerated her diet. Diet was increased. She was able to be discharged on 11/04/2017 without any complications. Prior to discharge, she had dietary instruction on a low-fiber, low-residue diet. REVIEW OF SYSTEMS: HEENT: Negative. NECK: Negative. HEART: No chest pain, shortness of breath, fast or irregular heartbeats. LUNGS: Negative for cough. ABDOMEN: Denies pain. No abdominal distention. Appetite has returned. Last bowel movement, 11/04/2017. Oral intake 1280 and urine output was 1550. Denies any nausea, vomiting, diarrhea, constipation, red or black stools. : Negative. EXTREMITIES: Normal joint pain and stiffness. SKIN: Without rash. NEURO: Intact. No headache, dizziness, or loss of coordination. PSYCHIATRIC: Negative. Remainder of review of systems negative for any pertinent positives and negatives. OBJECTIVE: GENERAL: Breanna Carroll is a pleasant 82-year-old female. Alert and orientated. VITAL SIGNS: Height is 5 feet 1 inch. Weight 138 pounds. TPR 97.9, 75, 18, and blood pressure 150/75. HEENT: Negative. NECK: Supple. HEART: Regular rate and rhythm. LUNGS: Clear. ABDOMEN: Soft, nontender, and nondistended. EXTREMITIES: Without peripheral edema. DISPOSITION: Discharged to home. CONDITION: Stable and improving. FOLLOWUP APPOINTMENT: With Avinash Mcclure MD, on 11/16/2017 at 10 a.m. DISCHARGE MEDICATIONS: Resume home medications: 1. Fosamax 70 mg oral every 7 days. 2. Vitamin D3 400 international units oral daily. 3. Cinnamon bark 1000 mg oral daily. 4. B12 100 mcg oral daily. 5. Ferrous sulfate 325 mg oral twice daily. 6. Glucosamine chondroitin one oral daily. DISCHARGE DIET: GI soft, low-residue, low-fiber diet. Drink 8 to 10 glasses of water a day. ACTIVITY: As tolerated. May shower. DISCHARGE INSTRUCTIONS: Notify provider if any fever, increased pain, nausea, or vomiting.
== END 2017-11-04 10:13 | disposition home or self-care (01) | DRG 390 ==
LOC: JP.ED 03:28 → JP.2SS 05:51
PROVIDERS: ADMIT Internal Medicine; ATTEND Internal Medicine
DX: K56.609 Unspecified intestinal obstruction, unspecified as to partial versus complete obstruction (principal); K56.600 Partial intestinal obstruction, unspecified as to cause; R10.10 Upper abdominal pain, unspecified; M06.9 Rheumatoid arthritis, unspecified; M19.90 Unspecified osteoarthritis, unspecified site; M81.0 Age-related osteoporosis without current pathological fracture; Z85.820 Personal history of malignant melanoma of skin; H54.7 Unspecified visual loss; H91.90 Unspecified hearing loss, unspecified ear; Z96.659 Presence of unspecified artificial knee joint; Z88.1 Allergy status to other antibiotic agents; R82.79 Other abnormal findings on microbiological examination of urine; E87.6 Hypokalemia; E83.39 Other disorders of phosphorus metabolism
CPT/HCPCS: 36415; 74177; 80048; 85027; 96361; 96374; 96375; 99284; 99285; J2405; J3010; J7030 ×2; J7050; Q9967; 74019; 74019-26; 80053; 83735; 83880; 84100; 94762; A9270-GY; C9113; J1650; J3490; J7042; J7120

== ENCOUNTER 2019-04-28 08:54 | Emergency (ER) | payer BC, MEDICARE ==
[2019-04-28 09:23] VITALS: BP 153/68; PULSE 99
[2019-04-28] MEDS ORDERED: Acetaminophen/HYDROcodone 325-5 MG Tab PO ONE (09:41)
--- NOTE | 2019-04-28 09:47 | EDM.PDOC ---
ED HPI GENERAL MEDICAL PROBLEM - General Chief Complaint: General Stated Complaint: R SIDE PAIN Time Seen by Provider: 04/28/19 09:35 Source of Information: Reports: Patient, Old Records History Limitations: Reports: No Limitations - History of Present Illness INITIAL COMMENTS - FREE TEXT/NARRATIVE: 84 yo female fell into a door jam hitting her R lateral chest about a week ago. Has had some mild pain in that area, but starting last night OTC medications are not controlling her pain. Pain is worse with deep breathing. She is not SOB. Onset: Sudden Onset Date: 04/21/19 Duration: Week(s): (1), Getting Worse Location: Reports: Chest (R lateral) Quality: Reports: Sharp, Stabbing Severity: Moderate Improves with: Reports: Rest Worsens with: Reports: Movement (breathing or coughing) Context: Reports: Trauma Associated Symptoms: Reports: No Other Symptoms Treatments PORT PURSER: Reports: NSAIDS Right Trunk Pain Score (Numeric/FACES): 5 - Related Data Allergies Allergy/AdvReac Type Severity Reaction Status Date / Time erythromycin lactobionate Allergy Severe Hives Verified 04/28/19 09:48 [From Erythrocin] Home Meds: Home Meds Cholecalciferol (Vitamin D3) [Vitamin D3] 400 unit PO DAILY 08/01/15 [History] Cyanocobalamin (Vitamin B12) [Vitamin B12] 100 mcg PO DAILY 08/01/15 [History] Gluc Ceballos 2KCl/Chondr/Vit C/Ulises [Glucosamine-Chondr Complex] 1 each PO DAILY 05/17 [History] Cinnamon Bark [Cinnamon] 1,000 mg PO DAILY 08/11/16 [History] Niacin 500 mg PO QAM 08/11/16 [History] Ferrous Sulfate [Iron] 325 mg PO BID 08/25/16 [History] Past Medical History HEENT History: Reports: Hard of Hearing, Impaired Vision Respiratory History: Reports: Croup Other Respiratory History: legionaries disease 1992 Gastrointestinal History: Reports: Cholelithiasis, Other (See Below) Other Gastrointestinal History: BOWEL OBSTRUCTION Genitourinary History: Reports: Other (See Below) Other Genitourinary History: ring to hold bladder up(non surgical procedure) 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: Musculoskeletal History: Reports: Arthritis, Osteoarthritis, RA Endocrine/Metabolic History: Reports: Osteoporosis Oncologic (Cancer) History: Reports: Malignant Melanoma - Infectious Disease History Infectious Disease History: Reports: Chicken Pox, Measles, Mumps Other Infectious Disease History: HAD SOME TYPE OF HEPITITIS YEARS AGO - Past Surgical History Head Surgeries/Procedures: Reports: None HEENT Surgical History: Reports: Cataract Surgery, Tonsillectomy Respiratory Surgical History: Reports: None GI Surgical History: Reports: Cholecystectomy, Colon Female Surgical History: Reports: None Endocrine Surgical History: Reports: None Musculoskeletal Surgical History: Reports: Knee Replacement Oncologic Surgical History: Reports: None Dermatological Surgical History: Reports: None Social & Family History - Tobacco Use Smoking Status *Q: Former Smoker Used Tobacco, but Quit: Yes Month/Year Tobacco Last Used: 1989 Second Hand Smoke Exposure: No - Caffeine Use Caffeine Use: Reports: Coffee - Recreational Drug Use Recreational Drug Use: No - Living Situation & Occupation Living situation: Reports: Occupation: Retired ( for 4 years, lives alone [address] in [place], [place]., selling in home, plans to live in [address] in [place], [place]. has 3 adult children/daughter) ED ROS GENERAL - Review of Systems Review Of Systems: See Below Constitutional: Reports: No Symptoms HEENT: Reports: No Symptoms Respiratory: Reports: Pleuritic Chest Pain (R lateral chest) Cardiovascular: Reports: No Symptoms Endocrine: Reports: No Symptoms GI/Abdominal: Reports: No Symptoms : Reports: No Symptoms Musculoskeletal: Reports: Other (chest wall pain) Skin: Reports: No Symptoms Neurological: Reports: No Symptoms ED EXAM, GENERAL - Physical Exam Exam: See Below Exam Limited By: No Limitations General Appearance: Alert, WD/WN, No Apparent Distress Eye Exam: Bilateral Eye: Normal Inspection Ears: Normal External Exam, Normal Canal, Hearing Grossly Normal Ear Exam: Bilateral Ear: Auricle Normal, Canal Normal Nose: Normal Inspection, No Blood Throat/Mouth: Normal Inspection, Normal Lips, Normal Oropharynx, Normal Voice, No Airway Compromise Head: Atraumatic, Normocephalic Neck: Normal Inspection Respiratory/Chest: No Respiratory Distress, Lungs Clear, Normal Breath Sounds, No Accessory Muscle Use. No: Chest Non-Tender (R lateral chest wall tender over a single rib, no bruising or crepitus) Cardiovascular: Regular Rate, Rhythm, No Edema GI/Abdominal: Normal Bowel Sounds, Soft, Non-Tender, No Distention Back Exam: Normal Inspection Extremities: Normal Inspection Neurological: Alert, Oriented, CN II-XII Intact, Normal Cognition, No Motor/ Sensory Deficits Psychiatric: Normal Affect, Normal Mood Skin Exam: Warm, Dry, Intact, Normal Color, No Rash Course - Vital Signs Last Recorded V/S: Last Vital Signs Temp 36.3 C 04/28/19 09:11 Pulse 99 04/28/19 09:11 Resp 13 04/28/19 09:11 BP 153/68 H 04/28/19 09:11 Pulse Ox 97 04/28/19 09:11 - Orders/Labs/Meds Labs: Laboratory Tests 04/28/19 Range/Units 09:32 Urine Color Yellow (YELLOW) Urine Appearance Slightly cloudy A (CLEAR) Urine pH 5.5 (5.0-8.0) Ur Specific [place] 1.010 (1.008-1.030) Urine Protein Negative (NEGATIVE) mg/dL Urine Glucose (UA) Negative (NEGATIVE) mg/dL Urine Ketones Negative (NEGATIVE) mg/dL Urine Occult Blood Negative (NEGATIVE) Urine Nitrite Negative (NEGATIVE) Urine Bilirubin Negative (NEGATIVE) Urine Urobilinogen 0.2 (0.2-1.0) EU/dL Ur Leukocyte Esterase Large H (NEGATIVE) Urine RBC Not seen (0-5) Urine WBC 0-5 (0-5) Ur Epithelial Cells Not seen Amorphous Sediment Few Urine Bacteria Rare Urine Mucus Rare Meds: Medications Discontinued Medications Generic Name Dose Route Start Last Admin Trade Name Pilar PRN Reason Stop Dose Admin Hydrocodone Bitart/Acetaminophen 1 tab 04/28/19 09:41 04/28/19 09:48 [place] 325-5 Mg PO 04/28/19 09:42 1 tab ONETIME ONE Administration - Radiology Interpretation Free Text/Narrative:: CXR- IMPRESSION: 1. No acute airspace disease. 2. There is no displaced rib fracture or pneumothorax. 3. Large hiatal hernia. Dictated by All Campo MD @ 04/28/2019 10:08:31 AM Departure - Departure Time of Disposition: 10:17 Disposition: Home, Self-Care 01 Condition: Good Clinical Impression: Rib pain on right side - Discharge Information *PRESCRIPTION DRUG MONITORING PROGRAM REVIEWED*: No *COPY OF PRESCRIPTION DRUG MONITORING REPORT IN PATIENT ANEL: No Instructions: Chest Wall Pain, [id number] Referrals: Rigoberto Giron MD [Primary Care Provider] - Forms: ED Department Discharge Additional Instructions: Take [place] as directed for pain relief. If your pain is only mild substitute acetaminophen. You may continue Aleve one every 12 hrs with food. Recheck with your provider this next week. Sepsis Event Note - Evaluation Sepsis Screening Result: No Definite Risk - Focused Exam Vital Signs: Vital Signs Temp Pulse Resp BP Pulse Ox 04/28/19 09:11 36.3 C 99 13 153/68 H 97 04/28/19 09:10 36.3 C 99 13 153/68 H 97 Date Exam was Performed: 04/28/19 Time Exam was Performed: 10:16
--- NOTE | 2019-04-28 10:10 | CRLCR ---
INDICATION: rib pain after fall, pain on right mid chest wall HISTORY: Rib pain after fall. COMPARISON: None. TECHNIQUE: Chest, 2 views. FINDINGS: Large hiatal hernia. Heart size is enlarged. Pulmonary vasculature is distinct. There is no acute airspace disease or pneumothorax. Minimal atelectasis at the right lateral costophrenic sulcus. Bowel gas pattern is normal in the upper abdomen. Surgical clips in the right upper quadrant, consistent with cholecystectomy. IMPRESSION: 1. No acute airspace disease. 2. There is no displaced rib fracture or pneumothorax. 3. Large hiatal hernia. Dictated by All Campo MD @ 04/28/2019 10:08:31 AM Dictated by: All Campo MD @ 04/28/2019 10:08:48 (Electronically Signed)
== END 2019-04-28 10:29 | disposition home or self-care (01) ==
LOC: JP.ED 08:54
DX: R07.81 Pleurodynia (principal); M06.9 Rheumatoid arthritis, unspecified; Z87.891 Personal history of nicotine dependence; Z79.899 Other long term (current) drug therapy; Z88.1 Allergy status to other antibiotic agents
CPT/HCPCS: 71046; 81001; 99283; 99284; A9270

== ENCOUNTER 2019-04-29 15:27 | Emergency (ER) | payer MEDICARE ==
--- NOTE | 2019-04-29 16:00 | EDM.PDOC ---
ED HPI GENERAL MEDICAL PROBLEM - General Chief Complaint: Head Injury Stated Complaint: MEDICAL VIA NORTH Time Seen by Provider: 04/29/19 15:45 Source of Information: Reports: Patient, Old Records, RN History Limitations: Reports: No Limitations - History of Present Illness INITIAL COMMENTS - FREE TEXT/NARRATIVE: 84 yo female fell off a step stool and landed on her butt. She hit the back of her head on the way down, but denies pain to the is area, LOC, MOORE, or nausea. No neck pain. Has a superficial laceration to her R thumb laterally. Onset: Today Onset Time: 15:00 Duration: Minutes:, Constant Location: Reports: Head, Pelvis, Upper Extremity, Right (thumb) Quality: Reports: Ache (buttocks area) Severity: Moderate Improves with: Reports: Rest Worsens with: Reports: Movement Context: Reports: Trauma Associated Symptoms: Reports: No Other Symptoms Treatments RELIGIOUS HEALER: Reports: Other (see below) (Tylenol #3) - Related Data Allergies Allergy/AdvReac Type Severity Reaction Status Date / Time erythromycin lactobionate Allergy Severe Hives Verified 04/29/19 15:32 [From Erythrocin] Home Meds: Home Meds Cholecalciferol (Vitamin D3) [Vitamin D3] 400 unit PO DAILY 08/01/15 [History] Cyanocobalamin (Vitamin B12) [Vitamin B12] 100 mcg PO DAILY 08/01/15 [History] Gluc Ceballos 2KCl/Chondr/Vit C/Ulises [Glucosamine-Chondr Complex] 1 each PO DAILY 05/17 [History] Cinnamon Bark [Cinnamon] 1,000 mg PO DAILY 08/11/16 [History] Niacin 500 mg PO QAM 08/11/16 [History] Ferrous Sulfate [Iron] 325 mg PO BID 08/25/16 [History] Acetaminophen/HYDROcodone [[place] 325-5 MG] 1 - 2 tab PO Q6H PRN #20 tab [Rx] Past Medical History HEENT History: Reports: Hard of Hearing, Impaired Vision Respiratory History: Reports: Croup Other Respiratory History: legionaries disease 1992 Gastrointestinal History: Reports: Cholelithiasis, Other (See Below) Other Gastrointestinal History: BOWEL OBSTRUCTION Genitourinary History: Reports: Other (See Below) Other Genitourinary History: ring to hold bladder up(non surgical procedure) 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: Musculoskeletal History: Reports: Osteoarthritis, RA Endocrine/Metabolic History: Reports: Osteoporosis Oncologic (Cancer) History: Reports: Malignant Melanoma - Infectious Disease History Infectious Disease History: Reports: Chicken Pox, Measles, Mumps Other Infectious Disease History: HAD SOME TYPE OF HEPITITIS YEARS AGO - Past Surgical History HEENT Surgical History: Reports: Cataract Surgery, Tonsillectomy Respiratory Surgical History: Reports: None GI Surgical History: Reports: Cholecystectomy, Colon Female Surgical History: Reports: Hysterectomy Endocrine Surgical History: Reports: None Oncologic Surgical History: Reports: Other (See Below) Dermatological Surgical History: Reports: None Social & Family History - Tobacco Use Smoking Status *Q: Never Smoker - Caffeine Use Caffeine Use: Reports: None - Living Situation & Occupation Living situation: Reports: Occupation: Retired ( for 4 years, lives alone [address] in [place], [place]., selling in home, plans to live in [address] in [place], [place]. has 3 adult children/daughter) ED ROS GENERAL - Review of Systems Review Of Systems: See Below Constitutional: Reports: No Symptoms HEENT: Reports: No Symptoms Respiratory: Reports: No Symptoms Cardiovascular: Reports: No Symptoms GI/Abdominal: Reports: No Symptoms : Reports: No Symptoms Musculoskeletal: Reports: Other (buttocks area pain) Skin: Reports: Wound (superficial laceration to the R thumb laterally.) Neurological: Reports: No Symptoms ED EXAM, HEAD INJURY - Physical Exam Exam: See Below Exam Limited By: No Limitations General Appearance: Alert, WD/WN, No Apparent Distress Head: Scalp Hematoma (2 cm hematoma at occiput, no bleeding.) Eyes: Bilateral Eye: Normal Inspection Ears: Normal External Exam, Normal Canal, Hearing Grossly Normal, Normal TMs Nose: Normal Inspection, No Blood Throat/Mouth: Normal Inspection, Normal Lips, Normal Oropharynx, Normal Voice, No Airway Compromise Neck: Non-Tender, Full Range of Motion, Normal Inspection. No: Limited Range of Motion, Stiff Neck, Tenderness Respiratory: No Respiratory Distress, Lungs Clear, Normal Breath Sounds, No Accessory Muscle Use Cardiovascular: Regular Rate, Rhythm, No Edema GI/Abdominal Exam: Normal Bowel Sounds, Soft, Non-Tender, No Distention Back Exam: Normal Inspection. No: CVA Tenderness (R), CVA Tenderness (L) Extremities: Normal Inspection, Normal Range of Motion, Non-Tender, No Pedal Edema Neurologic: evp [place] II-XII nml As Tested, No Motor/Sensory Deficits, Alert, Normal Mood/Affect, Oriented x 3 Skin: Normal Color, Warm/Dry, Other (partial thickness laceration lateral R thumb distal phalanx, no bleeding.) - Hussain Coma Score Best Eye Response ([place]): (4) Open Spontaneously Best Verbal Response ([place]): (5) Oriented Best Motor Response ([place]): (6) Obeys Commands Course - Vital Signs Last Recorded V/S: Last Vital Signs Temp 36.7 C 04/29/19 15:47 Pulse 85 04/29/19 15:47 Resp 14 04/29/19 15:47 BP 153/77 H 04/29/19 15:47 Pulse Ox 98 04/29/19 15:47 - Radiology Interpretation Free Text/Narrative:: Pelvis [id number]: Degenerative change Dictated by Rebecca Farley MD @ Apr 29 2019 4:33PM Departure - Departure Time of Disposition: 16:45 Disposition: Home, Self-Care 01 Condition: Good, Fair Clinical Impression: Fall in elderly patient Contusion of occipital region of scalp Qualifiers: Encounter type: initial encounter Qualified Code(s): S00.03XA - Contusion of scalp, initial encounter Finger abrasion Qualifiers: Encounter type: initial encounter Qualified Code(s): S60.419A - Abrasion of unspecified finger, initial encounter - Discharge Information *PRESCRIPTION DRUG MONITORING PROGRAM REVIEWED*: No *COPY OF PRESCRIPTION DRUG MONITORING REPORT IN PATIENT ANEL: No Referrals: PCP,None [Primary Care Provider] - Forms: ED Department Discharge Additional Instructions: Take acetaminophen as needed for pain relief. Wash finger with soap and water twice daily to prevent infection. Recheck as needed. Sepsis Event Note - Evaluation Sepsis Screening Result: No Definite Risk - Focused Exam Vital Signs: Vital Signs Temp Pulse Resp BP Pulse Ox 04/29/19 15:47 36.7 C 85 14 153/77 H 98 Date Exam was Performed: 04/29/19 Time Exam was Performed: 16:39
[2019-04-29 16:22] VITALS: BP 153/77; PULSE 85
--- NOTE | 2019-04-29 16:35 | CRLCR ---
Indication: Fall. Technique: An AP view of the pelvis was obtained. Comparison: None Findings: Both femoral heads are seated within the acetabula. Degenerative changes of the lower lumbar spine and both hips are identified. No acute fracture or subluxation is identified. Impression: Degenerative change Dictated by Rebecca Farley MD @ Apr 29 2019 4:33PM Signed by Dr. Rebecca Farley @ Apr 29 2019 4:33PM
== END 2019-04-29 16:55 | disposition home or self-care (01) ==
LOC: JP.ED 15:27
DX: S00.03XA Contusion of scalp, initial encounter (principal); S61.011A Laceration without foreign body of right thumb without damage to nail, initial encounter; Z88.1 Allergy status to other antibiotic agents; W17.89XA Other fall from one level to another, initial encounter
CPT/HCPCS: 72170; 99282; 99283-25

== ENCOUNTER 2019-08-17 06:53 | Day surgery (SDC) | payer MEDICARE ==
[2019-08-17] MEDS ORDERED: fentaNYL 100 MCG/2 ML SDV ONE (07:10)
[2019-08-17] MEDS ORDERED: Propofol 200 MG/20 ML SDV ONE (07:10)
[2019-08-17] MEDS ORDERED: Dextrose 5%-Lactated Ringers 1,000 ML IV SCH (07:30)
[2019-08-17] MEDS ORDERED: Meropenem 500 MG in Sodium Chloride 0.9% 50 ML IV ONE (08:00)
[2019-08-17 10:07] VITALS: BP 144/70; PULSE 60
--- NOTE | 2019-08-27 12:38 | OR ---
DATE OF PROCEDURE: 08/17/2019 SURGEON: Avinash Mcclure MD PREOPERATIVE DIAGNOSIS: History of colon polyps. POSTOPERATIVE DIAGNOSIS: A single 1 cm polyp at the splenic flexure of the colon. OPERATIVE PROCEDURES: Flexible colonoscopy with: 1. Polypectomy (08779). 2. Injection of Jeanne ink in the submucosa adjacent to the polypectomy site (71102). ANESTHESIA: IV sedation. INDICATION FOR PROCEDURE: This is an 84-year-old female presenting with a history of colon adenomatous polyps being removed in 2017. She presents now for a followup colonoscopy. The potential risks of the procedure, including bleeding and perforation, were discussed, and the patient wishes to proceed. DETAILS OF PROCEDURE: The patient was taken to the operating room and placed in a left lateral decubitus position. IV sedation was administered, after which the initial digital rectal exam was performed and was unremarkable. A colonoscope was then passed into the level of the rectum with retroflexion revealing uncomplicated hemorrhoidal columns. The scope was eventually passed to the cecum. The prep was fairly good. The patient had a single roughly 1 cm polyp located in the splenic flexure. This was excised by means of the cautery snare technique, evacuated from the field, and sent for histologic evaluation. Due to a somewhat nebulous location of the polyp, 3 mL of Jeanne ink was injected into the submucosa of the colon adjacent to the polypectomy site in the event that a formal resection needed to be undertaken. The scope was then withdrawn. There were no additional abnormalities noted. There were no diverticula and no areas of colitis. The procedure was then concluded. Given the patient's relatively good health and the fact that she has developed significant polyp in that 3-year period since the last polypectomy, I would recommend a repeat colonoscopy in 2 years, assuming her overall health remains satisfactory. Avinash Mcclure MD /[id number]
== END 2019-08-17 10:12 | disposition home or self-care (01) ==
LOC: JP.SDS 06:53
PROVIDERS: ATTEND Surgery
DX: D12.3 Benign neoplasm of transverse colon (principal); Z88.1 Allergy status to other antibiotic agents; Z86.010 Personal history of colon polyps
CPT/HCPCS: 88305; J2185; J2704; J3010; J7050; J7121

== ENCOUNTER 2020-01-24 13:56 | Inpatient (IN) | payer MEDICARE ==
--- NOTE | 2020-01-24 14:31 | EDM.PDOC ---
ED HPI GENERAL MEDICAL PROBLEM - General Chief Complaint: Abdominal Pain Stated Complaint: PAINS IN STOMACH Time Seen by Provider: 01/24/20 14:31 Source of Information: Reports: Patient History Limitations: Reports: No Limitations - History of Present Illness INITIAL COMMENTS - FREE TEXT/NARRATIVE: 85 years old female patient presented to the ER with a chief complaint of abdomi nal pain started this morning. Intermittent. No radiation. Dull aching and cramping. Nothing makes it better or worse. Denies any nausea or vomiting. Denies any chest pain shortness breath. Denies any cough or fever. Denies any diarrhea or constipation. Denies any urinary symptom. Abdomen Pain Score (Numeric/FACES): 7 - Related Data Allergies Allergy/AdvReac Type Severity Reaction Status Date / Time erythromycin lactobionate Allergy Severe Hives Verified 01/24/20 14:30 [From Erythrocin] Home Meds: Home Meds Cholecalciferol (Vitamin D3) [Vitamin D3] 400 unit PO DAILY 08/01/15 [History] Cyanocobalamin (Vitamin B12) [Vitamin B12] 100 mcg PO DAILY 08/01/15 [History] Gluc Ceballos 2KCl/Chondr/Vit C/Ulises [Glucosamine-Chondr Complex] 1 each PO DAILY 08/01/15 [History] Cinnamon Bark [Cinnamon] 1,000 mg PO DAILY 08/11/16 [History] Niacin 500 mg PO QAM 08/11/16 [History] Alendronate Sodium [Fosamax] 70 mg PO WEEKLY 08/15/19 [History] Amoxicillin 2,000 mg PO ASDIRECTED PRN 08/15/19 [History] Ferrous Sulfate [Ferosul] 325 mg PO BID 08/15/19 [History] Hydrocodone/Acetaminophen [[place] 5-325 Tablet] 1 - 2 each PO Q4H PRN 08/15/19 [History] Past Medical History HEENT History: Reports: Cataract, Hard of Hearing, Impaired Vision Respiratory History: Reports: Croup Other Respiratory History: legionaries disease 1994 Gastrointestinal History: Reports: Bowel Obstruction, Cholelithiasis, Colon Polyp, Other (See Below) Other Gastrointestinal History: BOWEL OBSTRUCTION Genitourinary History: Reports: Other (See Below) Other Genitourinary History: ring to hold bladder up(non surgical procedure) 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: 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, Musculoskeletal History: Reports: Osteoarthritis, RA Endocrine/Metabolic History: Reports: Osteoporosis Hematologic History: Reports: Anemia, Blood Transfusion(s) Oncologic (Cancer) History: Reports: Malignant Melanoma - Infectious Disease History Infectious Disease History: Reports: Chicken Pox, Measles, Mumps Other Infectious Disease History: HAD SOME TYPE OF HEPITITIS YEARS AGO - Past Surgical History HEENT Surgical History: Reports: Cataract Surgery, Tonsillectomy Respiratory Surgical History: Reports: None GI Surgical History: Reports: Cholecystectomy, Colonoscopy Female Surgical History: Reports: Hysterectomy Endocrine Surgical History: Reports: None Musculoskeletal Surgical History: Reports: Knee Replacement Oncologic Surgical History: Reports: Other (See Below) Other Oncologic Surgeries/Procedures: right cheek Dermatological Surgical History: Reports: None Social & Family History - Caffeine Use Caffeine Use: Reports: Coffee - Living Situation & Occupation Living situation: Reports: Occupation: Retired ( for 4 years, lives [address] in [place], [place]., selling in home, plans to live in [address] in [place], [place]. has 3 adult children/daughter) ED ROS GENERAL - Review of Systems Review Of Systems: Comprehensive ROS is negative, except as noted in HPI. ED EXAM, GI/ABD - Physical Exam Exam: See Below Exam Limited By: No Limitations General Appearance: Alert, WD/WN, No Apparent Distress Head: Atraumatic, Normocephalic Neck: Normal Inspection, Supple, Non-Tender, Full Range of Motion Respiratory/Chest: No Respiratory Distress, Lungs Clear, Normal Breath Sounds, No Accessory Muscle Use, Chest Non-Tender Cardiovascular: Normal Peripheral Pulses, Regular Rate, Rhythm, No Edema, No Gallop, No JVD, No Murmur, No Rub GI/Abdominal Exam: Normal Bowel Sounds, Soft, Non-Tender, No Organomegaly, No Distention, No Abnormal Bruit, No Mass, Pelvis Stable, Distended. No: Guarding, Rigid, Rebound, Tender Extremities: Normal Inspection, Normal Range of Motion, Non-Tender, Normal Capillary Refill, No Pedal Edema Neurological: Alert, Oriented, CN II-XII Intact, Normal Cognition, Normal Gait, Normal Reflexes, No Motor/Sensory Deficits Course - Vital Signs Last Recorded V/S: Last Vital Signs Temp 36.7 C 01/24/20 14:38 Pulse 87 01/24/20 16:29 Resp 16 09/24/20 16:29 BP 147/87 H 01/24/20 16:29 Pulse Ox 97 01/24/20 16:29 - Orders/Labs/Meds Orders: Active Orders 24 hr Category Date Time Status Patient Status [ADT] Routine ADT 01/24/20 16:21 Active Ambulate [RC] ASDIRECTED Care 01/24/20 16:21 Active Dorsiflex/Plantar flex x 10 [RC] QSHIFT Care 01/24/20 16:21 Active Head of Bed Elevation [RC] CONTINUOUS Care 01/24/20 16:21 Active May Shower [RC] ASDIRECTED Care 01/26/20 16:21 Active Oxygen Therapy [RC] PRN Care 01/24/20 16:21 Active Pneumonia Education [RC] UPON Care 01/24/20 16:21 Active RT Incentive Spirometry [RC] Q1HWA Care 01/24/20 16:21 Active Turn, Cough, Deep Breathe [RC] Q1HWA Care 01/24/20 16:21 Active Up ad Rosario [RC] ASDIRECTED Care 01/24/20 16:21 Active Up to Chair [RC] TIDMEALS Care 01/24/20 16:21 Active Vital Signs [RC] PER UNIT ROUTINE Care 01/24/20 16:21 Active Respiratory Care Assess and Treatment [CONS] Routine Cons 01/24/20 16:21 Active Clear Liquid Diet [DIET] Diet 01/24/20 Dinner Active BASIC METABOLIC PANEL,BMP [CHEM] AM Lab 01/25/20 05:11 Ordered CBC WITH AUTO DIFF [HEME] AM Lab 01/25/20 05:11 Ordered UA W/MICROSCOPIC [URIN] Urgent Lab 01/24/20 14:32 Ordered Acetaminophen/oxyCODONE [Percocet 325-10 MG] Med 01/24/20 16:21 Active 2 tab PO Q4H PRN Benzocaine/Cetylpyrd/Menthol [Cepacol Sore Throat] Med 01/24/20 16:21 Active 1 lozenge MUCMEM Q1H PRN Docusate Sodium [Colace] Med 01/24/20 16:21 Active 100 mg PO BID PRN Docusate Sodium/Sennosides [Senna Plus] Med 01/24/20 16:21 Active 1 tab PO BID PRN Ondansetron [Zofran] Med 01/24/20 16:21 Active 4 mg IVPUSH Q6H PRN Promethazine [Phenergan] Med 01/24/20 16:21 Active 25 mg IM Q6H PRN Ropivacaine [Naropin 0.5%] 30 ml Med 01/24/20 17:00 Active dexAMETHasone [Dexamethasone] 8 mg EPINEPHrine [Adrenalin] 0.4 mg Sodium Chloride 0.9% [Normal Saline] 47.6 ml NERVRT ASDIRECTED bisacodyL [Dulcolax] Med 01/24/20 16:21 Active 5 mg PO DAILY PRN diphenhydrAMINE [Benadryl] Med 01/24/20 16:21 Active 50 mg IVPUSH Q4H PRN fentaNYL [Sublimaze] Med 01/24/20 16:21 Active 25 mcg IVPUSH Q1H PRN fentaNYL [Sublimaze] Med 01/24/20 16:21 Active 50 mcg IVPUSH Q1H PRN hydrOXYzine HCL [Vistaril] Med 01/24/20 16:21 Active 100 mg IM Q4H PRN metroNIDAZOLE/Normal Saline [Flagyl 500 MG in NS 100 ML Med 01/24/20 16:21 Active ] 500 mg Premix Bag 1 bag IV ONETIME Abdominal Binder [OM.PC] Per Unit Routine Oth 01/24/20 16:22 Ordered Oral Care [OM.PC] BID Oth 01/24/20 16:30 Ordered Oral Care [OM.PC] BID Oth 01/25/20 16:30 Ordered Resuscitation Status Routine Resus Stat 01/24/20 16:21 Ordered Medication Orders Benzocaine/Menthol (Cepacol Sore Throat) 1 lozenge MUCMEM Q1H PRN PRN Reason: Sore Throat Bisacodyl (Dulcolax) 5 mg PO DAILY PRN PRN Reason: Constipation Ropivacaine 30 ml/Dexamethasone 8 mg/Epinephrine HCl 0.4 mg/ Sodium Chloride 47.6 ml 0 ml NERVRT ASDIRECTED MIMI Diphenhydramine HCl (Benadryl) 50 mg IVPUSH Q4H PRN PRN Reason: Itching Docusate Sodium (Colace) 100 mg PO BID PRN PRN Reason: Constipation Fentanyl (Sublimaze) 50 mcg IVPUSH Q1H PRN PRN Reason: Pain (severe 7-10) Fentanyl (Sublimaze) 25 mcg IVPUSH Q1H PRN PRN Reason: Pain (moderate 4-6) Hydroxyzine HCl (Vistaril) 100 mg IM Q4H PRN PRN Reason: Nausea Metronidazole 500 mg/ Premix 100 mls @ 100 mls/hr IV ONETIME ONE Stop: 01/24/20 17:20 Last Admin: 01/24/20 17:12 Dose: 100 mls/hr Documented by: SANTIAGO Ondansetron HCl (Zofran) 4 mg IVPUSH Q6H PRN PRN Reason: Nausea/Vomiting Oxycodone/Acetaminophen (Percocet 325-10 Mg) 2 tab PO Q4H PRN PRN Reason: Pain (moderate 4-6) Promethazine HCl (Phenergan) 25 mg IM Q6H PRN PRN Reason: Nausea Senna/Docusate Sodium (Senna Plus) 1 tab PO BID PRN PRN Reason: Constipation Labs: Laboratory Tests 01/24/20 01/24/20 01/24/20 Range/Units 14:32 14:32 14:32 WBC 12.7 H (4.5-11.0) K/uL RBC 4.92 (3.30-5.50) M/uL Hgb 13.6 (12.0-15.0) g/dL Hct 41.7 (36.0-48.0) % MCV 85 (80-98) fL MCH 28 (27-31) pg MCHC 33 (32-36) % Plt Count 373 (150-400) K/uL Neut % (Auto) 76 H (36-66) % Lymph % (Auto) 16 L (24-44) % [place] % (Auto) 7 H (2-6) % Eos % (Auto) 1 L (2-4) % Baso % (Auto) 0 (0-1) % Sodium 138 L (140-148) mmol/L Potassium 3.8 (3.6-5.2) mmol/L Chloride 105 (100-108) mmol/L Carbon Dioxide 20 L (21-32) mmol/L Anion Gap 16.8 H (5.0-14.0) mmol/L BUN 17 D (7-18) mg/dL Creatinine 0.8 (0.6-1.0) mg/dL Est Cr Clr Drug Dosing 42.53 mL/min Estimated GFR (MDRD) > 60 (>60) Glucose 117 H (74-106) mg/dL Lactic Acid 1.1 (0.4-2.0) mmol/L Calcium 9.4 (8.5-10.1) mg/dL Total Bilirubin 0.6 (0.2-1.0) mg/dL AST 24 (15-37) U/L ALT 21 (12-78) U/L Alkaline Phosphatase 66 (46-116) U/L C-Reactive Protein 0.65 H (0.0-0.3) mg/dL Total Protein 6.3 L (6.4-8.2) g/dL Albumin 3.4 (3.4-5.0) g/dL Globulin 2.9 (2.3-3.5) g/dL Albumin/Globulin Ratio 1.2 (1.2-2.2) Lipase 91 (73-393) U/L SARS-CoV-2 RNA (FINESSE) (NEGATIVE) 01/24/20 Range/Units 16:06 WBC (4.5-11.0) K/uL RBC (3.30-5.50) M/uL Hgb (12.0-15.0) g/dL Hct (36.0-48.0) % MCV (80-98) fL MCH (27-31) pg MCHC (32-36) % Plt Count (150-400) K/uL Neut % (Auto) (36-66) % Lymph % (Auto) (24-44) % [place] % (Auto) (2-6) % Eos % (Auto) (2-4) % Baso % (Auto) (0-1) % Sodium (140-148) mmol/L Potassium (3.6-5.2) mmol/L Chloride (100-108) mmol/L Carbon Dioxide (21-32) mmol/L Anion Gap (5.0-14.0) mmol/L BUN (7-18) mg/dL Creatinine (0.6-1.0) mg/dL Est Cr Clr Drug Dosing mL/min Estimated GFR (MDRD) (>60) Glucose (74-106) mg/dL Lactic Acid (0.4-2.0) mmol/L Calcium (8.5-10.1) mg/dL Total Bilirubin (0.2-1.0) mg/dL AST (15-37) U/L ALT (12-78) U/L Alkaline Phosphatase (46-116) U/L C-Reactive Protein (0.0-0.3) mg/dL Total Protein (6.4-8.2) g/dL Albumin (3.4-5.0) g/dL Globulin (2.3-3.5) g/dL Albumin/Globulin Ratio (1.2-2.2) Lipase (73-393) U/L SARS-CoV-2 RNA (FINESSE) Negative (NEGATIVE) Meds: Medications Generic Name Dose Route Start Last Admin Trade Name Freq PRN Reason Stop Dose Admin Benzocaine/Menthol 1 lozenge 01/24/20 16:21 Cepacol Sore Throat MUCMEM Q1H PRN Sore Throat Bisacodyl 5 mg 01/24/20 16:21 Dulcolax PO DAILY PRN Constipation Ropivacaine 30 ml/ 0 ml 01/24/20 17:00 Dexamethasone 8 mg/ NERVRT Epinephrine HCl 0.4 mg/ Sodium ASDIRECTED MIMI Chloride 47.6 ml Diphenhydramine HCl 50 mg 01/24/20 16:21 Benadryl IVPUSH Q4H PRN Itching Docusate Sodium 100 mg 01/24/20 16:21 Colace PO BID PRN Constipation Fentanyl 50 mcg 01/24/20 16:21 Sublimaze IVPUSH Q1H PRN Pain (severe 7-10) Fentanyl 25 mcg 01/24/20 16:21 Sublimaze IVPUSH Q1H PRN Pain (moderate 4-6) Hydroxyzine HCl 100 mg 01/24/20 16:21 Vistaril IM Q4H PRN Nausea Metronidazole 500 mg/ Premix 100 mls @ 100 mls/hr 01/24/20 16:21 01/24/20 17:12 IV 01/24/20 17:20 100 mls/hr ONETIME ONE Administration Ondansetron HCl 4 mg 01/24/20 16:21 Zofran IVPUSH Q6H PRN Nausea/Vomiting Oxycodone/Acetaminophen 2 tab 01/24/20 16:21 Percocet 325-10 Mg PO Q4H PRN Pain (moderate 4-6) Promethazine HCl 25 mg 01/24/20 16:21 Phenergan IM Q6H PRN Nausea Senna/Docusate Sodium 1 tab 01/24/20 16:21 Senna Plus PO BID PRN Constipation Discontinued Medications Generic Name Dose Route Start Last Admin Trade Name Sudarshanq PRN Reason Stop Dose Admin Dexamethasone Confirm 01/24/20 17:05 Dexamethasone Administered 01/24/20 17:06 Dose 4 mg .ROUTE .STK-MED ONE Fentanyl Confirm 01/24/20 17:04 Sublimaze Administered 01/24/20 17:05 Dose 250 mcg .ROUTE .STK-MED ONE Glycopyrrolate Confirm 01/24/20 17:05 Robinul Administered 01/24/20 17:06 Dose 1 mg .ROUTE .STK-MED ONE Sodium Chloride 80 mls @ 3.5 mls/sec 01/24/20 15:00 01/24/20 15:03 Normal Saline IV 01/24/20 15:01 3 mls/sec ASDIRECTED MIMI Administration Cefazolin Sodium/Dextrose 2 gm 50 mls @ 100 mls/hr 01/24/20 16:20 01/24/20 16:49 / Premix IV 01/24/20 16:49 100 mls/hr ASDIRECTED ONE Administration Iopamidol 96 ml 01/24/20 15:00 01/24/20 15:01 Isovue-300 (61%) IV 01/24/20 15:01 96 ml . DIRECTED MIMI Administration Neostigmine Methylsulfate Confirm 01/24/20 17:05 Neostigmine Administered 01/24/20 17:06 Dose 5 mg .ROUTE .STK-MED ONE Ondansetron HCl Confirm 01/24/20 17:05 Zofran Administered 01/24/20 17:06 Dose 4 mg .ROUTE .STK-MED ONE Propofol Confirm 01/24/20 17:05 Diprivan 20 Ml Administered 01/24/20 17:06 Dose 200 mg .ROUTE .STK-MED ONE Rocuronium [place] Confirm 01/24/20 17:05 Zemuron Administered 01/24/20 17:06 Dose 50 mg .ROUTE .STK-MED ONE Sodium Chloride 10 ml 01/24/20 14:53 01/24/20 15:02 Saline Flush FLUSH 01/24/20 14:54 10 ml ONETIME ONE Administration - Radiology Interpretation Free Text/Narrative:: Patient was seen and examined shortly after arrival. Stable. Lab and imaging reviewed with the patient. CT shows sign of small bowel obstruction. 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 He accepted admission for further management. He is here evaluating the patient. Patient agrees with the plan. Stable for admission.. Departure - Departure Time of Disposition: 16:05 Disposition: Admitted As Inpatient 66 Condition: Fair Clinical Impression: Small bowel obstruction - Discharge Information Sepsis Event Note (ED) - Focused Exam Vital Signs: Vital Signs Temp Pulse Resp BP Pulse Ox 01/24/20 16:29 87 16 147/87 H 97 01/24/20 14:38 36.7 C 109 H 18 146/102 H 98 01/24/20 14:15 36.7 C 109 H 18 146/102 H 98 - My Orders Last 24 Hours: My Active Orders 01/24/20 14:32 UA W/MICROSCOPIC [URIN] Urgent - Assessment/Plan Last 24 Hours: My Active Orders 01/24/20 14:32 UA W/MICROSCOPIC [URIN] Urgent
[2020-01-24] MEDS ORDERED: Sodium Chloride 0.9% 10 ML Syringe FLUSH ONE (14:53)
[2020-01-24] MEDS ORDERED: Iopamidol 612 MG/ML 100 ML Bottle IV SCH (15:00)
[2020-01-24] MEDS ORDERED: Sodium Chloride 0.9% 80 ML IV SCH (15:00)
--- NOTE | 2020-01-24 15:50 | CT ---
Abdomen Pelvis w Cont CLINICAL HISTORY: Abdominal pain COMPARISON: None. TECHNIQUE: Transverse scans were obtained from the base of the lungs to the pubic symphysis following oral contrast and IV infusion of contrast.Auto dosage reduction and iterative reconstructiontechniques employed. FINDINGS: There is moderate diffuse small bowel distention. There is some fecal is a show an of bowel content in the ileum. There appears to be a transition point in the distal ileum in the mid pelvis to the right of midline. There is either some thickening in the ileum versus possible intussusception. The lung bases are clear. There is a moderately large hiatal hernia. The liver shows mild intrahepatic biliary dilatation. The gallbladder has been removed. The spleen is borderline enlarged. The pancreas shows no mass or inflammatory change. The adrenal glands appear normal bilaterally is a 3.3 x 2.6 cm cyst off the lower pole of the left kidney. There is a subcentimeter cyst in the midpole. The ureters have normal course and caliber. Bladder has normal contour The aorta contains moderate atheromatous plaque without aneurysm. There is no suspicious retroperitoneal adenopathy. IMPRESSION: Distal small bowel obstruction possibly secondary to intussusception. Left renal cysts Large hiatal hernia ER was notified by telephone at the time of this dictation at 345
[2020-01-24] MEDS ORDERED: ceFAZolin 2 GM in Premix Bag 1 BAG IV ONE (16:20)
[2020-01-24] MEDS ORDERED: fentaNYL 100 MCG/2 ML SDV IVPUSH PRN ×2 (16:21)
[2020-01-24] MEDS ORDERED: Promethazine 25 MG/ML SDV IM PRN (16:21)
[2020-01-24] MEDS ORDERED: Ondansetron 4 MG/2 ML SDV IVPUSH PRN (16:21)
[2020-01-24] MEDS ORDERED: diphenhydrAMINE 50 MG/ML SDV IVPUSH PRN (16:21)
[2020-01-24] MEDS ORDERED: Docusate Sodium 100 MG Cap PO PRN (16:21)
[2020-01-24] MEDS ORDERED: metroNIDAZOLE/Normal Saline 500 MG in Premix Bag 1 BAG IV ONE (16:21)
[2020-01-24] MEDS ORDERED: hydrOXYzine HCL 100 MG/2 ML SDV IM PRN (16:21)
[2020-01-24] MEDS ORDERED: Bisacodyl 5 MG Tab PO PRN (16:21)
[2020-01-24] MEDS ORDERED: Benzocaine/Cetylpyridinium/Menthol Lozenge MUCMEM PRN (16:21)
[2020-01-24] MEDS ORDERED: Ropivacaine 30 ML, dexAMETHasone 8 MG, EPINEPHrine 0.4 MG, Sodium Chloride 0.9% 47.6 ML NERVRT SCH ×4 (17:00)
[2020-01-24] MEDS ORDERED: fentaNYL 250 MCG/5 ML SDV ONE (17:04)
[2020-01-24] MEDS ORDERED: Glycopyrrolate 0.2 MG/ML 5 ML MDV ONE (17:05)
[2020-01-24] MEDS ORDERED: Ondansetron 4 MG/2 ML SDV ONE (17:05)
[2020-01-24] MEDS ORDERED: Rocuronium 50 MG/5 ML Vial ONE (17:05)
[2020-01-24] MEDS ORDERED: Neostigmine Methylsulfate 1 MG/ML 5 ML Syringe ONE (17:05)
[2020-01-24] MEDS ORDERED: Dexamethasone 4 MG/ML SDV ONE (17:05)
[2020-01-24] MEDS ORDERED: Propofol 200 MG/20 ML SDV ONE (17:05)
[2020-01-24] MEDS ORDERED: Ketorolac 60 MG/2 ML SDV ONE (18:05)
[2020-01-24] MEDS: Sodium Chloride 0.9% 1,000 ML IV SCH (21:42)
[2020-01-25] MEDS: Sodium Chloride 0.9% 1,000 ML IV SCH ×2 (04:12→10:37)
[2020-01-25] MEDS: Acetaminophen/oxyCODONE 325-10 MG Tab PO PRN ×3 (06:53→19:43)
--- NOTE | 2020-01-25 07:57 | OR ---
DATE OF PROCEDURE: 01/24/2020 SURGEON: All Torre MD PROCEDURE: Transversus abdominis plane block bilaterally. COMPLICATIONS: None. NURSE ORTHOPAEDIC: None. RISKS: Risks, benefits, alternatives, and limitations including, but not limited to infection, bleeding, and perforation of abdominal structures were explained to the patient, who wished to proceed. PROCEDURE IN DETAIL: The patient was placed in supine position. A 13 megahertz ultrasound probe was used to identify the left transversus plane. This was injected under direct ultrasound guidance. The total contents of the solution were injected. The right side was then performed in same manner, same fashion, same technique, in the same sequence using the same equipment, except for different needle and syringe. The patient tolerated the procedure well. All Torre MD /[id number]
--- NOTE | 2020-01-25 08:03 | OR ---
DATE OF PROCEDURE: 01/24/2020 SURGEON: All Torre MD PREOPERATIVE DIAGNOSIS: Internal hernia. POSTOPERATIVE DIAGNOSIS: Internal hernia. PROCEDURES: 1. Exploratory laparotomy. 2. Repair of internal hernia ([id number]). COMPLICATIONS: None. MANUAL ARTS THERAPIST: None. ANESTHETIC: General. RISKS: Risks, benefits, alternatives, and limitations including, but not limited to infection, bleeding, perforation, septic shock, leaks, fistulas, general cardiovascular issues and other risks not listed here were explained to the patient, who wished to proceed. PROCEDURE IN DETAIL: The patient was placed in supine position. A midline abdominal incision was made. Kochers were used to elevate, and the abdomen was entered sharply. No evidence of enterotomy or injury was noted. The small bowel was run in its entirety. A piece of omentum was noted to be causing an internal hernia. This was reduced and subsequently transected. The bowel was then run in an antegrade fashion again and then in a retrograde fashion. No abnormalities were noted. The bowel was not significantly distended. The abdomen was then closed with #1 Vicryl in a running fashion x2. Subcutaneous tissues closed with 2-0 Vicryl and skin was closed with melvina. A sweep of the liver showed no other abnormalities. No other gross abnormalities were noted in the abdomen. All Torre MD /[id number]
[2020-01-25] MEDS: Enoxaparin 40 MG/0.4 ML Syringe SUBCUT SCH (10:28)
--- NOTE | 2020-01-25 11:48 | PN ---
DATE OF SERVICE: 01/25/2020 SUBJECTIVE: The patient is doing very well today. Pain is well controlled. No nausea, vomiting, shortness of breath, or chest pain. No GI activity. OBJECTIVE: VITAL SIGNS: Vital signs are stable. CARDIOVASCULAR: Regular rhythm and rate. RESPIRATORY: Lungs clear to auscultation bilaterally. ABDOMEN: Dressing intact. ASSESSMENT AND PLAN: Status post exploratory laparotomy with repair of internal hernia. 1. Gastrointestinal. We will add Entereg today, stay on clear liquids. 2. Prophylaxis. We will start Lovenox today. 3. General disposition, doing well. Anticipate discharge once GI activity has improved. All oTrre MD /[id number]
[2020-01-25] MEDS ORDERED: Albuterol/Ipratropium 3.0-0.5 MG/3 ML Neb Soln NEB PRN (21:03)
[2020-01-25] MEDS ORDERED: Furosemide 20 MG/2 ML VIAL IVPUSH ONE (21:03)
[2020-01-25] MEDS ORDERED: Sodium Chloride 0.9% 1,000 ML IV SCH (23:14)
[2020-01-26] MEDS: Acetaminophen/oxyCODONE 325-10 MG Tab PO PRN ×2 (06:06→15:28)
[2020-01-26] MEDS: Enoxaparin 40 MG/0.4 ML Syringe SUBCUT SCH (09:10)
--- NOTE | 2020-01-26 10:15 | PN ---
DATE OF SERVICE: 01/26/2020 SUBJECTIVE: The patient is unchanged from yesterday. Except for pain is better controlled. No nausea, vomiting, shortness of breath, or chest pain. OBJECTIVE: VITAL SIGNS: Stable. She is afebrile. CARDIOVASCULAR: Regular rhythm and rate. RESPIRATORY: Lungs are clear to auscultation bilaterally. ABDOMEN: Dressing intact. ASSESSMENT: Status post repair of internal hernia. PLAN: Responded well to Lasix last night. No issues with breathing. We will await GI activity. We will saline lock IV today and continue on clear liquids. All Torre MD /[id number]
[2020-01-27] MEDS: Enoxaparin 40 MG/0.4 ML Syringe SUBCUT SCH (10:05)
--- NOTE | 2020-01-27 11:37 | PN ---
DATE OF SERVICE: 01/27/2020 SUBJECTIVE: The patient is doing very well. Pain is well controlled. No nausea, vomiting, shortness of breath, or chest pain. OBJECTIVE: VITAL SIGNS: Stable. CARDIOVASCULAR: Regular rhythm and rate. RESPIRATORY: Lungs are clear to auscultation bilaterally. SKIN: Incision healing well. ASSESSMENT: Status post exploratory lap. PLAN: The patient is now having bowel movements. Her pain is well controlled. No nausea, vomiting, shortness of breath, or chest pain. No evidence of infection. Anticipate discharge in the next 24 hours. All Torre MD /[id number]
--- NOTE | 2020-01-27 11:49 | CONS ---
DATE OF SERVICE: 01/24/2020 REFERRING PHYSICIAN: CONSULTING PHYSICIAN: All Torre MD Consultation from Dr. Root. REASON FOR CONSULTATION: Abdominal pain. HISTORY OF PRESENT ILLNESS: This is an 85-year-old female who presented to the emergency room with a chief complaint of abdominal pain. This is less than 24 hours in duration, however, this is recurrent. The patient has been admitted 3 times for this similar diagnoses, was treated nonoperatively. However, this has obviously recurred a fourth time. Her pain is 7/10. This is not associated with any nausea or vomiting. PAST MEDICAL HISTORY: As above. 1. Legionnaires disease. 2. Croup. 3. Osteoporosis. 4. Osteoarthritis. 5. Rheumatoid arthritis. 6. History of malignant melanoma. 7. Tonsillectomy. 8. Knee replacements. SOCIAL HISTORY: She does not smoke. FAMILY HISTORY: Noncontributory. REVIEW OF SYSTEMS: GENERAL: The patient is appropriate for her condition. RESPIRATORY: No history of asthma. COVID test pending. GASTROINTESTINAL: As above. GENITOURINARY: No dysuria. MUSCULOSKELETAL: History of knee replacements. HEMATOLOGY: No abnormal bleeding history. ONCOLOGICAL: Malignant melanoma. The remainder of review of systems is reviewed and is negative. PHYSICAL EXAMINATION: GENERAL: The patient is appropriate for condition. VITAL SIGNS: Temperature 98.0, blood pressure 146/102, pulse 109. CARDIOVASCULAR: Regular rhythm and rate. RESPIRATORY: Lungs clear to auscultation bilaterally. ABDOMEN: Distended, mildly. No rebound. No guarding. EXTREMITIES: Full range of motion. NEUROLOGIC: Oriented x3. PSYCHIATRIC: No gross depression. IMAGING DATA: I did review a CT scan which suggests bowel obstruction. ASSESSMENT: Small bowel obstruction. PLAN: The patient and I had a discussion. Although she has been treated with this multiple times nonoperatively, at this point this is her 4th recurrence. Therefore, the best intervention would be surgical at this time. We discussed risks, benefits, alternatives, and limitations including, but not limited to infection, bleeding, and perforation of abdominal structures. We also discussed abscess, fistula, recurrent surgery, possibility of small bowel obstruction, and other risks not listed here. The patient understands these risks and wishes to proceed. All Torre MD /[id number]
[2020-01-27] MEDS: Acetaminophen/oxyCODONE 325-10 MG Tab PO PRN (17:36)
[2020-01-28 07:16] VITALS: BP 147/77; PULSE 93
[2020-01-28] MEDS: Enoxaparin 40 MG/0.4 ML Syringe SUBCUT SCH (09:04)
--- NOTE | 2020-01-28 10:41 | PN ---
DATE OF SERVICE: 01/28/2020 SUBJECTIVE: The patient is doing very well. Pain is well controlled. No nausea, vomiting, shortness of breath, or chest pain. She is having daily bowel movements. OBJECTIVE: VITAL SIGNS: Stable. CARDIOVASCULAR: Regular rhythm and rate. RESPIRATORY: Lungs are clear to auscultation bilaterally. Incision is healing well. ASSESSMENT: Status post exploratory laparotomy. PLAN: The patient will be discharged today. Please see discharge summary for further details. All Torre MD /[id number]
--- NOTE | 2020-01-28 10:47 | DISCH ---
DISCHARGE DIAGNOSIS: Status post exploratory laparotomy for repair of internal hernia. SUMMARY OF HOSPITAL COURSE: This is a pleasant 85-year-old female, who underwent exploratory laparotomy for repair of internal hernia. Prior to discharge, her pain is well controlled. She had no nausea, vomiting, shortness of breath, or chest pain. Incision is healing well. FOLLOWUP: With Surgery in 7 to 14 days. ACTIVITY: No lifting greater than 30 pounds x30 days. DISCHARGE MEDICATIONS: Please see MAR, but include Henriette for pain.
== END 2020-01-28 10:00 | disposition home or self-care (01) | DRG 358 ==
LOC: JP.ED 13:56 → JP.SDS 16:56 → JP.MS 18:50 → UNDOADMIN 18:50
PROVIDERS: ADMIT Surgery; ATTEND Surgery
PROC: 0DQV0ZZ Repair Mesentery, Open Approach (ICD-10-PCS; principal; 2020-01-24)
DX: K46.0 Unspecified abdominal hernia with obstruction, without gangrene (principal); K46.9 Unspecified abdominal hernia without obstruction or gangrene; M81.0 Age-related osteoporosis without current pathological fracture; M06.9 Rheumatoid arthritis, unspecified; Z90.89 Acquired absence of other organs; Z96.653 Presence of artificial knee joint, bilateral; Z85.820 Personal history of malignant melanoma of skin; D64.9 Anemia, unspecified; H91.90 Unspecified hearing loss, unspecified ear; Z98.49 Cataract extraction status, unspecified eye; H54.7 Unspecified visual loss; Z86.010 Personal history of colon polyps; N93.8 Other specified abnormal uterine and vaginal bleeding; Z88.1 Allergy status to other antibiotic agents; Z79.899 Other long term (current) drug therapy; M19.90 Unspecified osteoarthritis, unspecified site; Z90.710 Acquired absence of both cervix and uterus; Z96.659 Presence of unspecified artificial knee joint; Z90.49 Acquired absence of other specified parts of digestive tract; Z20.828 Contact with and (suspected) exposure to other viral communicable diseases
CPT/HCPCS: 36415; 51702; 74177; 74177-26; 80048; 80053; 83605; 83690; 83880; 85025; 85027; 86140; 99285; 99285-25; A9270-GY; J0171; J0690; J1100; J1650; J1885; J1940; J2405; J2704; J2710; J2795; J3010; J3490; J7030; J7050; Q9967; U0002

== ENCOUNTER 2021-10-03 18:43 | Emergency (ER) | payer MEDICARE ==
[2021-10-03] MEDS ORDERED: Sodium Chloride 0.9% 10 ML Syringe FLUSH PRN (19:32)
[2021-10-03] MEDS ORDERED: Sodium Chloride 0.9% 1,000 ML IV SCH (19:45)
[2021-10-03] MEDS ORDERED: Sodium Chloride 0.9% 75 ML IV SCH (20:30)
[2021-10-03] MEDS ORDERED: Iopamidol 612 MG/ML 100 ML Bottle IV SCH (20:30)
[2021-10-03 22:01] VITALS: BP 152/74; PULSE 80
== END 2021-10-03 22:15 | disposition home or self-care (01) ==
LOC: JP.ED 18:43
DX: R10.31 Right lower quadrant pain (principal); R10.32 Left lower quadrant pain; Z88.1 Allergy status to other antibiotic agents
CPT/HCPCS: 36415; 74177; 80053; 83605; 85025; 99282; 99284-25; J3490; J7030; Q9967

== ENCOUNTER 2021-10-04 09:07 | Emergency (ER) | payer MEDICARE ==
[2021-10-04] MEDS ORDERED: Ketorolac 30 MG/ML SDV IM ONE (09:54)
[2021-10-04 10:22] VITALS: BP 157/77; PULSE 75
== END 2021-10-04 11:37 | disposition home or self-care (01) ==
LOC: JP.ED 09:07
DX: K52.9 Noninfective gastroenteritis and colitis, unspecified (principal); Z90.49 Acquired absence of other specified parts of digestive tract; Z90.710 Acquired absence of both cervix and uterus; Z88.1 Allergy status to other antibiotic agents; Z79.899 Other long term (current) drug therapy
CPT/HCPCS: 36415; 74019; 80053; 83605; 85025; 86140; 96372; 99282; 99284; J1885

== ENCOUNTER 2022-08-21 07:30 | Observation (INO) | payer MEDICARE ==
[2022-08-21] MEDS ORDERED: Sodium Chloride 0.9% 1,000 ML IV ONE (08:06)
[2022-08-21 08:15] LABS: APPEARANCE,URINE CLEAR (CLEAR); BILIRUBIN,URINE NEGATIVE (NEGATIVE); COLOR,URINE YELLOW (YELLOW); GLUCOSE,URINE NEGATIVE (NEGATIVE); KETONES,URINE NEGATIVE (NEGATIVE); LEUKOCYTE ESTERASE,URINE NEGATIVE (NEGATIVE); NITRITE,URINE NEGATIVE (NEGATIVE); OCCULT BLOOD,URINE NEGATIVE (NEGATIVE); PROTEIN,URINE NEGATIVE (NEGATIVE); UROBILINOGEN,URINE 0.2 EU/dL (0.2-1.0)
[2022-08-21 08:19] LABS: BASOPHILS PERCENT AUTO 0.1 % (0.1-1.3); HEMATOCRIT 42.9 % (34.3-46.0); HEMOGLOBIN 13.6 g/dL (11.2-15.5); IMMATURE GRAN ABSOLUTE AUTO 0.08 K/uL (0.00-0.23); IMMATURE GRAN PERCENT AUTO 0.5 % (0.0-0.7); LYMPHOCYTES ABSOLUTE AUTO 0.25 K/uL (0.8-3.3); LYMPHOCYTES PERCENT AUTO 1.4 % (11.4-47.7); MEAN CORPUSCULAR HEMOGLOBIN 27.2 pg (31.6-35.5); MEAN CORPUSCULAR HGB CONC 31.7 g/dL (31.6-35.5); MEAN CORPUSCULAR VOLUME 85.8 fL (81.4-99.0); MONOCYTES ABSOLUTE AUTO 0.47 K/uL (0.20-0.90); MONOCYTES PERCENT AUTO 2.7 % (3.3-12.6); NEUTROPHILS ABSOLUTE AUTO 16.79 K/uL (1.0-7.6); NEUTROPHILS PERCENT AUTO 95.3 % (40.0-78.1); PLATELET COUNT,PLT 318 K/uL (130-375); WHITE BLOOD CELL COUNT,WBC 17.6 K/uL (3.2-11.0)
[2022-08-21 08:20] LABS: BASOPHILS ABSOLUTE AUTO 0.02 K/uL (0.00-0.10)
[2022-08-21 08:21] LABS: RBC,URINE 0-5 (0-5); WBC,URINE 0-5 (0-5)
[2022-08-21 08:22] LABS: AMORPHOUS SEDIMENT,URINE MANY; BACTERIA,URINE NOT SEEN; EPITHELIAL CELLS,URINE NOT SEEN; MUCUS,URINE MANY
[2022-08-21 08:30] LABS: CALCIUM 9.2 mg/dL (8.5-10.1); CREATININE 1.2 mg/dL (0.6-1.0); EST CRCL DRUG DOSING (CG) 26.12 mL/min; POTASSIUM,K 3.6 mmol/L (3.6-5.2)
[2022-08-21 08:32] LABS: ANION GAP 16.6 mmol/L (5.0-14.0)
[2022-08-21] MEDS ORDERED: Sodium Chloride 0.9% 1,000 ML IV SCH (11:00)
[2022-08-21] MEDS ORDERED: Ondansetron 4 MG/2 ML SDV IV PRN (12:47)
[2022-08-21] MEDS ORDERED: Ondansetron 4 MG Tab.DIS PO PRN (12:47)
[2022-08-21] MEDS ORDERED: Acetaminophen 325 MG Tab PO PRN (12:47)
[2022-08-21] MEDS: Potassium Chloride 10 MEQ in Premix Bag 1 BAG IV SCH ×4 (13:24→19:42)
[2022-08-21] MEDS: NS + KCl 20mEq/L 1,000 ML IV SCH ×2 (13:24→23:26)
[2022-08-21] MEDS: Loperamide 2 MG Cap PO PRN (17:41)
[2022-08-21] MEDS: Lactobacillus Rhamnosus GG (Probiotic) Cap PO SCH (20:09)
[2022-08-22] MEDS: Loperamide 2 MG Cap PO PRN ×4 (03:53→17:25)
[2022-08-22 05:03] LABS: HEMATOCRIT 33.8 % (34.3-46.0); HEMOGLOBIN 10.7 g/dL (11.2-15.5); MEAN CORPUSCULAR HEMOGLOBIN 27.8 pg (31.6-35.5); MEAN CORPUSCULAR HGB CONC 31.7 g/dL (31.6-35.5); MEAN CORPUSCULAR VOLUME 87.8 fL (81.4-99.0); RED BLOOD CELL COUNT 3.85 M/uL (3.77-5.24); WHITE BLOOD CELL COUNT,WBC 7.3 K/uL (3.2-11.0)
[2022-08-22 05:18] LABS: CALCIUM 7.4 mg/dL (8.5-10.1); EST CRCL DRUG DOSING (CG) 31.35 mL/min; POTASSIUM,K 4.5 mmol/L (3.6-5.2)
[2022-08-22 05:32] LABS: ANION GAP 11.5 mmol/L (5.0-14.0)
[2022-08-22] MEDS: Lactobacillus Rhamnosus GG (Probiotic) Cap PO SCH ×2 (09:11→20:26)
[2022-08-22] MEDS ORDERED: Simethicone 125 MG Tab.Chew PO PRN (17:09)
[2022-08-23] MEDS: Lactobacillus Rhamnosus GG (Probiotic) Cap PO SCH (08:11)
[2022-08-23 10:05] VITALS: BP 133/68; PULSE 76
== END 2022-08-23 12:40 | disposition home or self-care (01) ==
LOC: JP.ED 07:30 → JP.MS 11:39
PROVIDERS: ADMIT Internal Medicine; ATTEND Internal Medicine
DX: K52.9 Noninfective gastroenteritis and colitis, unspecified (principal); R53.1 Weakness; K80.20 Calculus of gallbladder without cholecystitis without obstruction; M19.90 Unspecified osteoarthritis, unspecified site; D64.9 Anemia, unspecified; Z90.49 Acquired absence of other specified parts of digestive tract; Z90.710 Acquired absence of both cervix and uterus; Z98.890 Other specified postprocedural states; Z87.891 Personal history of nicotine dependence; Z86.010 Personal history of colon polyps; Z20.822 Contact with and (suspected) exposure to COVID-19; Z79.899 Other long term (current) drug therapy; Z88.1 Allergy status to other antibiotic agents
CPT/HCPCS: 36415; 80048; 81001; 85025; 85027; 87493; 89055; 96361; 96365; 96366; 99222; 99232; 99238; 99285; A9270; G0378; J3480; J7030; U0002; 96360

== ENCOUNTER 2023-02-24 13:06 | Emergency (ER) | payer MEDICARE ==
[2023-02-24 13:24] VITALS: BP 189/90; PULSE 100
[2023-02-24] MEDS ORDERED: Albuterol/Ipratropium 3.0-0.5 MG/3 ML Neb Soln NEB ONE (14:04)
[2023-02-24 14:07] LABS: CARBOXYHEMOGLOBIN 2.1 % (0.0-1.6); METHEMOGLOBIN 0.8 %; O2 SATURATION VENOUS 62.5; OXYHEMOGLOBIN 60.7 %; PH,VENOUS 7.501 (7.350-7.450); TOTAL HEMOGLOBIN 14.4 g/dL (12.0-16.0)
[2023-02-24 14:07] LABS: BASOPHILS ABSOLUTE AUTO 0.04 K/uL (0.00-0.10); BASOPHILS PERCENT AUTO 0.4 % (0.1-1.3); EOSINOPHILS ABSOLUTE AUTO 0.45 K/uL (0.00-0.40); HEMOGLOBIN 13.9 g/dL (11.2-15.5); IMMATURE GRAN ABSOLUTE AUTO 0.04 K/uL (0.00-0.23); IMMATURE GRAN PERCENT AUTO 0.4 % (0.0-0.7); LYMPHOCYTES ABSOLUTE AUTO 2.49 K/uL (0.8-3.3); LYMPHOCYTES PERCENT AUTO 22.1 % (11.4-47.7); MEAN CORPUSCULAR HEMOGLOBIN 28.2 pg (31.6-35.5); MEAN CORPUSCULAR HGB CONC 33.9 g/dL (31.6-35.5); MEAN CORPUSCULAR VOLUME 83.2 fL (81.4-99.0); MONOCYTES ABSOLUTE AUTO 0.77 K/uL (0.20-0.90); MONOCYTES PERCENT AUTO 6.8 % (3.3-12.6); NEUTROPHILS ABSOLUTE AUTO 7.49 K/uL (1.0-7.6); NEUTROPHILS PERCENT AUTO 66.3 % (40.0-78.1); PLATELET COUNT,PLT 384 K/uL (130-375); RED BLOOD CELL COUNT 4.93 M/uL (3.77-5.24); WHITE BLOOD CELL COUNT,WBC 11.3 K/uL (3.2-11.0)
[2023-02-24 14:11] LABS: BASE EXCESS VENOUS 0.3 mm/L; BICARBONATE,VENOUS 21.9 mmol/L; PCO2 VENOUS 28.3 mm/Hg
[2023-02-24 14:12] LABS: PO2 VENOUS 31.6 mm/Hg
[2023-02-24 14:25] LABS: PROTHROMBIN TIME 10.4 sec (9.2-10.6)
[2023-02-24 14:39] LABS: A/G RATIO 0.9 (1.2-2.2); ALANINE AMINOTRANSFERASE,ALT 13 U/L (12-78); ALBUMIN 3.4 g/dL (3.4-5.0); ALKALINE PHOSPHATASE 97 U/L (46-116); ANION GAP 16.3 mmol/L (5.0-14.0); ASPARTATE AMNIOTRANSFERASE,AST 18 U/L (15-37); BILIRUBIN TOTAL 0.6 mg/dL (0.2-1.0); BLOOD UREA NITROGEN,BUN 12 mg/dL (7-18); CALCIUM 10.3 mg/dL (8.5-10.1); CARBON DIOXIDE,CO2 24 mmol/L (21-32); CHLORIDE,CL 105 mmol/L (100-108); CREATININE 0.8 mg/dL (0.6-1.0); EST CRCL DRUG DOSING (CG) 38.44 mL/min; ESTIMATED GFR 71 mL/min (>60); GLUCOSE RANDOM 97 mg/dL (74-106); POTASSIUM,K 3.3 mmol/L (3.6-5.2); PRO B-TYPE NATRIUR PEPT,BNPPRO 270 pg/mL (5-450); SODIUM,NA 142 mmol/L (140-148)
[2023-02-24 14:40] LABS: CORONAVIRUS COVID-19 NAA NEGATIVE (NEGATIVE); INFLUENZA A NAA NEGATIVE (NEGATIVE); INFLUENZA B NAA NEGATIVE (NEGATIVE); RESPIRATORY SYNCYTIAL VIR NAA NEGATIVE (NEGATIVE)
[2023-02-24] MEDS ORDERED: Sodium Chloride 0.9% 100 ML IV SCH (16:00)
[2023-02-24] MEDS ORDERED: Iopamidol 755 Mg/ML 100 ML Bottle IV SCH (16:00)
== END 2023-02-24 17:15 | disposition home or self-care (01) ==
LOC: JP.ED 13:06
DX: J18.9 Pneumonia, unspecified organism (principal); K44.9 Diaphragmatic hernia without obstruction or gangrene; Z88.1 Allergy status to other antibiotic agents; Z20.822 Contact with and (suspected) exposure to COVID-19; Z79.899 Other long term (current) drug therapy
CPT/HCPCS: 0241U; 36415; 71046; 71275; 80053; 82803; 83605; 83880; 84145; 84484; 85025; 85379; 85610; 87040; 93005; 94640; 99285; J3490; Q9967; J7620

== ENCOUNTER 2023-08-02 09:14 | Emergency (ER) | payer MEDICARE ==
[2023-08-02 10:45] LABS: CALCIUM 10.1 mg/dL (8.5-10.1); CREATININE 0.8 mg/dL (0.6-1.0); EST CRCL DRUG DOSING (CG) 38.44 mL/min; POTASSIUM,K 3.6 mmol/L (3.6-5.2)
[2023-08-02 11:45] VITALS: BP 167/83; PULSE 79
== END 2023-08-02 11:45 | disposition home or self-care (01) ==
LOC: JP.ED 09:14
DX: A08.4 Viral intestinal infection, unspecified (principal); J40 Bronchitis, not specified as acute or chronic; Z88.1 Allergy status to other antibiotic agents; Z90.49 Acquired absence of other specified parts of digestive tract; Z90.710 Acquired absence of both cervix and uterus; Z87.891 Personal history of nicotine dependence; Z79.899 Other long term (current) drug therapy
CPT/HCPCS: 36415; 80048; 99284

== ENCOUNTER 2023-08-03 14:11 | Emergency (ER) | payer MEDICARE ==
[2023-08-03 15:15] LABS: BASOPHILS ABSOLUTE AUTO 0.03 K/uL (0.00-0.10); BASOPHILS PERCENT AUTO 0.3 % (0.1-1.3); EOSINOPHILS ABSOLUTE AUTO 0.24 K/uL (0.00-0.40); EOSINOPHILS PERCENT AUTO 2.5 % (0.0-5.4); HEMATOCRIT 39.2 % (34.3-46.0); HEMOGLOBIN 13.2 g/dL (11.2-15.5); IMMATURE GRAN ABSOLUTE AUTO 0.09 K/uL (0.00-0.23); IMMATURE GRAN PERCENT AUTO 0.9 % (0.0-0.7); LYMPHOCYTES ABSOLUTE AUTO 2.08 K/uL (0.8-3.3); LYMPHOCYTES PERCENT AUTO 21.3 % (11.4-47.7); MEAN CORPUSCULAR HEMOGLOBIN 27.8 pg (31.6-35.5); MEAN CORPUSCULAR HGB CONC 33.7 g/dL (31.6-35.5); MEAN CORPUSCULAR VOLUME 82.5 fL (81.4-99.0); MONOCYTES ABSOLUTE AUTO 0.75 K/uL (0.20-0.90); MONOCYTES PERCENT AUTO 7.7 % (3.3-12.6); NEUTROPHILS ABSOLUTE AUTO 6.57 K/uL (1.0-7.6); NEUTROPHILS PERCENT AUTO 67.3 % (40.0-78.1); PLATELET COUNT,PLT 365 K/uL (130-375); RED BLOOD CELL COUNT 4.75 M/uL (3.77-5.24); WHITE BLOOD CELL COUNT,WBC 9.8 K/uL (3.2-11.0)
[2023-08-03 15:39] LABS: CALCIUM 10.2 mg/dL (8.5-10.1); CREATININE 0.8 mg/dL (0.6-1.0); EST CRCL DRUG DOSING (CG) 38.44 mL/min; MAGNESIUM 1.7 mg/dL (1.8-2.4); POTASSIUM,K 3.5 mmol/L (3.6-5.2); TROPONIN I HIGH SENSITIVITY 7.9 pg/mL (<=60.3)
[2023-08-03 15:41] LABS: ANION GAP 17.5 mmol/L (5.0-14.0)
[2023-08-03] MEDS ORDERED: MVI, Adult with Vitamin K 10 ML, Thiamine 100 MG, Folic Acid 1 MG, Magnesium Sulfate 3 ... IV SCH (16:00)
[2023-08-03 16:15] LABS: CORONAVIRUS COVID-19 NAA NEGATIVE (NEGATIVE); INFLUENZA A NAA NEGATIVE (NEGATIVE); INFLUENZA B NAA NEGATIVE (NEGATIVE); RESPIRATORY SYNCYTIAL VIR NAA NEGATIVE (NEGATIVE)
[2023-08-03] MEDS: Sodium Chloride 0.9% 100 ML IV SCH (16:50)
[2023-08-03] MEDS: Iopamidol 612 MG/ML 100 ML Bottle IV SCH (16:50)
[2023-08-03] MEDS: Sodium Chloride 0.9% 1,000 ML IV SCH (17:02)
[2023-08-03] MEDS: Magnesium Sulfate/Water 2 GM in Premix Bag 1 BAG IV ONE (17:02)
[2023-08-03] MEDS: Potassium Chloride 20 MEQ Tab.ER PO ONE (17:02)
[2023-08-03 19:04] VITALS: BP 163/44; PULSE 76
== END 2023-08-03 19:10 | disposition home or self-care (01) ==
LOC: JP.ED 14:11
DX: B34.9 Viral infection, unspecified (principal); Z88.1 Allergy status to other antibiotic agents; Z90.49 Acquired absence of other specified parts of digestive tract; Z90.710 Acquired absence of both cervix and uterus; Z87.891 Personal history of nicotine dependence
CPT/HCPCS: 0241U; 36415; 71046; 71275; 80048; 83735; 84484; 85025; 85379; 96365; 96366; 99285; A9270; J3475; J3490; J7030; Q9967; 99284